=== PATIENT | male | born 1950 | race Caucasian/White ===

== ENCOUNTER 2020-10-07 09:13 | Outpatient (CLI) | payer MEDICARE, MEDICAID | END 2020-10-07 09:14 | disposition home or self-care (01) | LOC: CSHWCC 09:13 | PROVIDERS: ATTEND Nurse Practitioner Family | DX: I87.311 Chronic venous hypertension (idiopathic) with ulcer of right lower extremity (principal); G89.21 Chronic pain due to trauma; I87.2 Venous insufficiency (chronic) (peripheral); L97.312 Non-pressure chronic ulcer of right ankle with fat layer exposed; L97.812 Non-pressure chronic ulcer of other part of right lower leg with fat layer exposed; I87.312 Chronic venous hypertension (idiopathic) with ulcer of left lower extremity; L97.322 Non-pressure chronic ulcer of left ankle with fat layer exposed; L97.822 Non-pressure chronic ulcer of other part of left lower leg with fat layer exposed; I89.0 Lymphedema, not elsewhere classified; J44.9 Chronic obstructive pulmonary disease, unspecified; R60.0 Localized edema; Z65.8 Other specified problems related to psychosocial circumstances; Z91.19 Patient's noncompliance with other medical treatment and regimen | CPT/HCPCS: 29581 ==

== ENCOUNTER 2020-10-10 08:08 | Outpatient (CLI) | payer MEDICARE, MEDICAID | END 2020-10-10 08:09 | disposition home or self-care (01) | LOC: CSHWCC 08:08 | PROVIDERS: ATTEND Nurse Practitioner Family | DX: I87.311 Chronic venous hypertension (idiopathic) with ulcer of right lower extremity (principal); G89.21 Chronic pain due to trauma; I87.2 Venous insufficiency (chronic) (peripheral); L97.312 Non-pressure chronic ulcer of right ankle with fat layer exposed; L97.812 Non-pressure chronic ulcer of other part of right lower leg with fat layer exposed; I87.312 Chronic venous hypertension (idiopathic) with ulcer of left lower extremity; L97.322 Non-pressure chronic ulcer of left ankle with fat layer exposed; L97.822 Non-pressure chronic ulcer of other part of left lower leg with fat layer exposed; I89.0 Lymphedema, not elsewhere classified; J44.9 Chronic obstructive pulmonary disease, unspecified; R60.0 Localized edema; Z65.8 Other specified problems related to psychosocial circumstances; Z91.19 Patient's noncompliance with other medical treatment and regimen | CPT/HCPCS: 29581; 99213; G0463 ==

== ENCOUNTER 2020-10-17 08:41 | Outpatient (CLI) | payer MEDICARE, MEDICAID | END 2020-10-17 08:42 | disposition home or self-care (01) | LOC: CSHWCC 08:41 | PROVIDERS: ATTEND Nurse Practitioner Family | DX: I87.311 Chronic venous hypertension (idiopathic) with ulcer of right lower extremity (principal); L97.312 Non-pressure chronic ulcer of right ankle with fat layer exposed; L97.322 Non-pressure chronic ulcer of left ankle with fat layer exposed; L97.812 Non-pressure chronic ulcer of other part of right lower leg with fat layer exposed; G89.21 Chronic pain due to trauma; I87.2 Venous insufficiency (chronic) (peripheral); I89.0 Lymphedema, not elsewhere classified; J44.9 Chronic obstructive pulmonary disease, unspecified; R60.0 Localized edema; Z65.8 Other specified problems related to psychosocial circumstances; Z91.19 Patient's noncompliance with other medical treatment and regimen | CPT/HCPCS: 29581; 99213; G0463 ==

== ENCOUNTER 2020-10-24 08:57 | Outpatient (CLI) | payer MEDICARE, MEDICAID | END 2020-10-24 08:58 | disposition home or self-care (01) | LOC: EDBD → CSHWCC 08:57 | PROVIDERS: ATTEND Nurse Practitioner Family | DX: I87.311 Chronic venous hypertension (idiopathic) with ulcer of right lower extremity (principal); G89.21 Chronic pain due to trauma; I87.2 Venous insufficiency (chronic) (peripheral); L97.312 Non-pressure chronic ulcer of right ankle with fat layer exposed; L97.812 Non-pressure chronic ulcer of other part of right lower leg with fat layer exposed; L97.322 Non-pressure chronic ulcer of left ankle with fat layer exposed; L97.822 Non-pressure chronic ulcer of other part of left lower leg with fat layer exposed; I89.0 Lymphedema, not elsewhere classified; J44.9 Chronic obstructive pulmonary disease, unspecified; R60.0 Localized edema; Z65.8 Other specified problems related to psychosocial circumstances; Z91.19 Patient's noncompliance with other medical treatment and regimen | CPT/HCPCS: 29581; 99213; G0463 ==

== ENCOUNTER 2020-10-31 09:22 | Outpatient (CLI) | payer MEDICARE, MEDICAID | END 2020-10-31 09:23 | disposition home or self-care (01) | LOC: CSHWCC 09:22 | PROVIDERS: ATTEND Nurse Practitioner Family | DX: I87.312 Chronic venous hypertension (idiopathic) with ulcer of left lower extremity (principal); I87.311 Chronic venous hypertension (idiopathic) with ulcer of right lower extremity; L97.312 Non-pressure chronic ulcer of right ankle with fat layer exposed; L97.322 Non-pressure chronic ulcer of left ankle with fat layer exposed; L97.822 Non-pressure chronic ulcer of other part of left lower leg with fat layer exposed; L97.812 Non-pressure chronic ulcer of other part of right lower leg with fat layer exposed; R60.0 Localized edema; G89.21 Chronic pain due to trauma; I87.2 Venous insufficiency (chronic) (peripheral); J44.9 Chronic obstructive pulmonary disease, unspecified; I89.0 Lymphedema, not elsewhere classified; Z65.8 Other specified problems related to psychosocial circumstances; Z91.19 Patient's noncompliance with other medical treatment and regimen | CPT/HCPCS: 29581; 97139; G0463; 99213 ==

== ENCOUNTER 2020-12-16 08:25 | Outpatient (CLI) | payer MEDICARE, MEDICAID | END 2020-12-16 08:26 | disposition home or self-care (01) | LOC: CSHWCC 08:25 | PROVIDERS: ATTEND Nurse Practitioner Family | DX: I87.313 Chronic venous hypertension (idiopathic) with ulcer of bilateral lower extremity (principal); I87.2 Venous insufficiency (chronic) (peripheral); L97.312 Non-pressure chronic ulcer of right ankle with fat layer exposed; L97.812 Non-pressure chronic ulcer of other part of right lower leg with fat layer exposed; L97.322 Non-pressure chronic ulcer of left ankle with fat layer exposed; L97.822 Non-pressure chronic ulcer of other part of left lower leg with fat layer exposed; S91.101D Unspecified open wound of right great toe without damage to nail, subsequent encounter; I89.0 Lymphedema, not elsewhere classified; R60.0 Localized edema; B35.1 Tinea unguium; G89.21 Chronic pain due to trauma; J44.9 Chronic obstructive pulmonary disease, unspecified; Z65.8 Other specified problems related to psychosocial circumstances; Z91.19 Patient's noncompliance with other medical treatment and regimen | CPT/HCPCS: 29581; 97139; G0463; 99213 ==

== ENCOUNTER 2020-12-19 09:21 | Outpatient (CLI) | payer MEDICARE, MEDICAID | END 2020-12-19 09:22 | disposition home or self-care (01) | LOC: CSHWCC 09:21 | PROVIDERS: ATTEND Nurse Practitioner Family | DX: I87.313 Chronic venous hypertension (idiopathic) with ulcer of bilateral lower extremity (principal); I87.2 Venous insufficiency (chronic) (peripheral); L97.312 Non-pressure chronic ulcer of right ankle with fat layer exposed; L97.812 Non-pressure chronic ulcer of other part of right lower leg with fat layer exposed; L97.322 Non-pressure chronic ulcer of left ankle with fat layer exposed; L97.822 Non-pressure chronic ulcer of other part of left lower leg with fat layer exposed; S91.101A Unspecified open wound of right great toe without damage to nail, initial encounter; I89.0 Lymphedema, not elsewhere classified; R60.0 Localized edema; J44.9 Chronic obstructive pulmonary disease, unspecified; B35.1 Tinea unguium; G89.21 Chronic pain due to trauma; Z65.8 Other specified problems related to psychosocial circumstances; Z91.19 Patient's noncompliance with other medical treatment and regimen | CPT/HCPCS: 29581; 97139; G0463; 99212 ==

== ENCOUNTER 2020-12-23 08:57 | Outpatient (CLI) | payer MEDICARE, MEDICAID | END 2020-12-23 08:58 | disposition home or self-care (01) | LOC: CSHWCC 08:57 | PROVIDERS: ATTEND Nurse Practitioner Family | DX: I87.313 Chronic venous hypertension (idiopathic) with ulcer of bilateral lower extremity (principal); I87.2 Venous insufficiency (chronic) (peripheral); L97.812 Non-pressure chronic ulcer of other part of right lower leg with fat layer exposed; L97.322 Non-pressure chronic ulcer of left ankle with fat layer exposed; L97.822 Non-pressure chronic ulcer of other part of left lower leg with fat layer exposed; S91.101D Unspecified open wound of right great toe without damage to nail, subsequent encounter; I89.0 Lymphedema, not elsewhere classified; J44.9 Chronic obstructive pulmonary disease, unspecified; B35.1 Tinea unguium; G89.21 Chronic pain due to trauma; R60.0 Localized edema; Z65.8 Other specified problems related to psychosocial circumstances; Z91.19 Patient's noncompliance with other medical treatment and regimen | CPT/HCPCS: 29581; 97139; G0463; 99213 ==

== ENCOUNTER 2020-12-26 10:34 | Outpatient (CLI) | payer MEDICARE, MEDICAID | END 2020-12-26 10:35 | disposition home or self-care (01) | LOC: CSHWCC 10:34 | PROVIDERS: ATTEND Nurse Practitioner Family | DX: S91.101D Unspecified open wound of right great toe without damage to nail, subsequent encounter (principal); I87.311 Chronic venous hypertension (idiopathic) with ulcer of right lower extremity; I87.312 Chronic venous hypertension (idiopathic) with ulcer of left lower extremity; L97.311 Non-pressure chronic ulcer of right ankle limited to breakdown of skin; L97.822 Non-pressure chronic ulcer of other part of left lower leg with fat layer exposed; L97.812 Non-pressure chronic ulcer of other part of right lower leg with fat layer exposed; L97.322 Non-pressure chronic ulcer of left ankle with fat layer exposed; I89.0 Lymphedema, not elsewhere classified; R60.0 Localized edema; J44.9 Chronic obstructive pulmonary disease, unspecified; Z65.8 Other specified problems related to psychosocial circumstances; Z91.19 Patient's noncompliance with other medical treatment and regimen | CPT/HCPCS: 29581; 97139; G0463; 99213 ==

== ENCOUNTER 2020-12-30 08:45 | Outpatient (CLI) | payer MEDICARE, MEDICAID | END 2020-12-30 08:46 | disposition home or self-care (01) | LOC: CSHWCC 08:45 | PROVIDERS: ATTEND Nurse Practitioner Family | DX: S91.101D Unspecified open wound of right great toe without damage to nail, subsequent encounter (principal); I87.311 Chronic venous hypertension (idiopathic) with ulcer of right lower extremity; I87.312 Chronic venous hypertension (idiopathic) with ulcer of left lower extremity; L97.312 Non-pressure chronic ulcer of right ankle with fat layer exposed; L97.322 Non-pressure chronic ulcer of left ankle with fat layer exposed; L97.822 Non-pressure chronic ulcer of other part of left lower leg with fat layer exposed; R60.0 Localized edema; B35.1 Tinea unguium; G89.21 Chronic pain due to trauma; I87.2 Venous insufficiency (chronic) (peripheral); I89.0 Lymphedema, not elsewhere classified; J44.9 Chronic obstructive pulmonary disease, unspecified; Z65.8 Other specified problems related to psychosocial circumstances; Z91.19 Patient's noncompliance with other medical treatment and regimen | CPT/HCPCS: 29581; 97139; G0463; 99213 ==

== ENCOUNTER 2021-01-02 10:51 | Outpatient (CLI) | payer MEDICARE, MEDICAID | END 2021-01-02 10:52 | disposition home or self-care (01) | LOC: CSHWCC 10:51 | PROVIDERS: ATTEND Nurse Practitioner Family | DX: I87.313 Chronic venous hypertension (idiopathic) with ulcer of bilateral lower extremity (principal); I87.2 Venous insufficiency (chronic) (peripheral); L97.312 Non-pressure chronic ulcer of right ankle with fat layer exposed; L97.812 Non-pressure chronic ulcer of other part of right lower leg with fat layer exposed; L97.822 Non-pressure chronic ulcer of other part of left lower leg with fat layer exposed; S91.101D Unspecified open wound of right great toe without damage to nail, subsequent encounter; I89.0 Lymphedema, not elsewhere classified; R60.0 Localized edema; J44.9 Chronic obstructive pulmonary disease, unspecified; B35.1 Tinea unguium; G89.21 Chronic pain due to trauma; Z65.8 Other specified problems related to psychosocial circumstances; Z91.19 Patient's noncompliance with other medical treatment and regimen | CPT/HCPCS: 29581; 97139; G0463; 99213 ==

== ENCOUNTER 2021-01-06 10:25 | Outpatient (CLI) | payer MEDICARE, MEDICAID | END 2021-01-06 10:26 | disposition home or self-care (01) | LOC: CSHWCC 10:25 | PROVIDERS: ATTEND Nurse Practitioner Family | DX: I87.313 Chronic venous hypertension (idiopathic) with ulcer of bilateral lower extremity (principal); I87.2 Venous insufficiency (chronic) (peripheral); L97.312 Non-pressure chronic ulcer of right ankle with fat layer exposed; L97.812 Non-pressure chronic ulcer of other part of right lower leg with fat layer exposed; L97.822 Non-pressure chronic ulcer of other part of left lower leg with fat layer exposed; S91.101D Unspecified open wound of right great toe without damage to nail, subsequent encounter; R60.0 Localized edema; J44.9 Chronic obstructive pulmonary disease, unspecified; B35.1 Tinea unguium; G89.21 Chronic pain due to trauma; Z65.8 Other specified problems related to psychosocial circumstances; Z91.19 Patient's noncompliance with other medical treatment and regimen | CPT/HCPCS: 29581; 99213; G0463 ==

== ENCOUNTER 2021-01-09 09:58 | Outpatient (CLI) | payer MEDICARE, MEDICAID | END 2021-01-09 09:59 | disposition home or self-care (01) | LOC: CSHWCC 09:58 | PROVIDERS: ATTEND Nurse Practitioner Family | DX: I87.313 Chronic venous hypertension (idiopathic) with ulcer of bilateral lower extremity (principal); I87.2 Venous insufficiency (chronic) (peripheral); S91.101D Unspecified open wound of right great toe without damage to nail, subsequent encounter; L97.312 Non-pressure chronic ulcer of right ankle with fat layer exposed; L97.322 Non-pressure chronic ulcer of left ankle with fat layer exposed; L97.812 Non-pressure chronic ulcer of other part of right lower leg with fat layer exposed; L97.822 Non-pressure chronic ulcer of other part of left lower leg with fat layer exposed; I89.0 Lymphedema, not elsewhere classified; G89.21 Chronic pain due to trauma; J44.9 Chronic obstructive pulmonary disease, unspecified; R60.0 Localized edema; Z65.8 Other specified problems related to psychosocial circumstances; Z91.19 Patient's noncompliance with other medical treatment and regimen | CPT/HCPCS: 29581; 97139; G0463; 99213 ==

== ENCOUNTER 2021-01-13 09:04 | Outpatient (CLI) | payer MEDICARE, MEDICAID | END 2021-01-13 09:05 | disposition home or self-care (01) | LOC: CSHWCC 09:04 | PROVIDERS: ATTEND Nurse Practitioner Family | DX: I87.313 Chronic venous hypertension (idiopathic) with ulcer of bilateral lower extremity (principal); I87.2 Venous insufficiency (chronic) (peripheral); L97.322 Non-pressure chronic ulcer of left ankle with fat layer exposed; L97.312 Non-pressure chronic ulcer of right ankle with fat layer exposed; L97.812 Non-pressure chronic ulcer of other part of right lower leg with fat layer exposed; L97.822 Non-pressure chronic ulcer of other part of left lower leg with fat layer exposed; S91.101D Unspecified open wound of right great toe without damage to nail, subsequent encounter; I89.0 Lymphedema, not elsewhere classified; R60.0 Localized edema; J44.9 Chronic obstructive pulmonary disease, unspecified; G89.21 Chronic pain due to trauma; Z65.8 Other specified problems related to psychosocial circumstances; Z91.19 Patient's noncompliance with other medical treatment and regimen | CPT/HCPCS: 29581; 87070; 87077; 87205; 99213; G0463 ==

== ENCOUNTER 2021-01-16 09:51 | Outpatient (CLI) | payer MEDICARE, MEDICAID | END 2021-01-16 09:52 | disposition home or self-care (01) | LOC: CSHWCC 09:51 | PROVIDERS: ATTEND Nurse Practitioner Family | DX: I87.313 Chronic venous hypertension (idiopathic) with ulcer of bilateral lower extremity (principal); S91.101D Unspecified open wound of right great toe without damage to nail, subsequent encounter; I87.2 Venous insufficiency (chronic) (peripheral); G89.21 Chronic pain due to trauma; L97.312 Non-pressure chronic ulcer of right ankle with fat layer exposed; L97.822 Non-pressure chronic ulcer of other part of left lower leg with fat layer exposed; L97.812 Non-pressure chronic ulcer of other part of right lower leg with fat layer exposed; L97.322 Non-pressure chronic ulcer of left ankle with fat layer exposed; I89.0 Lymphedema, not elsewhere classified; J44.9 Chronic obstructive pulmonary disease, unspecified; R60.0 Localized edema; Z65.8 Other specified problems related to psychosocial circumstances; Z91.19 Patient's noncompliance with other medical treatment and regimen | CPT/HCPCS: 29581; 99213; G0463 ==

== ENCOUNTER 2021-01-20 07:43 | Outpatient (CLI) | payer MEDICARE, MEDICAID | END 2021-01-20 07:44 | disposition home or self-care (01) | LOC: CSHWCC 07:43 | PROVIDERS: ATTEND Nurse Practitioner Family | DX: S91.101D Unspecified open wound of right great toe without damage to nail, subsequent encounter (principal); I87.313 Chronic venous hypertension (idiopathic) with ulcer of bilateral lower extremity; R60.0 Localized edema; L97.312 Non-pressure chronic ulcer of right ankle with fat layer exposed; L97.812 Non-pressure chronic ulcer of other part of right lower leg with fat layer exposed; L97.322 Non-pressure chronic ulcer of left ankle with fat layer exposed; L97.822 Non-pressure chronic ulcer of other part of left lower leg with fat layer exposed; I89.0 Lymphedema, not elsewhere classified; I87.2 Venous insufficiency (chronic) (peripheral); G89.21 Chronic pain due to trauma; J44.9 Chronic obstructive pulmonary disease, unspecified; Z65.8 Other specified problems related to psychosocial circumstances; Z91.19 Patient's noncompliance with other medical treatment and regimen ==

== ENCOUNTER 2021-01-23 07:51 | Outpatient (CLI) | payer MEDICARE, MEDICAID | END 2021-01-23 07:52 | disposition home or self-care (01) | LOC: CSHWCC 07:51 | PROVIDERS: ATTEND Nurse Practitioner Family | DX: I87.313 Chronic venous hypertension (idiopathic) with ulcer of bilateral lower extremity (principal); I87.2 Venous insufficiency (chronic) (peripheral); L97.312 Non-pressure chronic ulcer of right ankle with fat layer exposed; L97.812 Non-pressure chronic ulcer of other part of right lower leg with fat layer exposed; L97.822 Non-pressure chronic ulcer of other part of left lower leg with fat layer exposed; S91.101D Unspecified open wound of right great toe without damage to nail, subsequent encounter; I89.0 Lymphedema, not elsewhere classified; R60.0 Localized edema; J44.9 Chronic obstructive pulmonary disease, unspecified; G89.21 Chronic pain due to trauma; Z65.8 Other specified problems related to psychosocial circumstances; Z91.19 Patient's noncompliance with other medical treatment and regimen ==

== ENCOUNTER 2021-01-27 11:16 | Outpatient (CLI) | payer MEDICARE, MEDICAID | END 2021-01-27 11:17 | disposition home or self-care (01) | LOC: CSHWCC 11:16 | PROVIDERS: ATTEND Nurse Practitioner Family | DX: I87.313 Chronic venous hypertension (idiopathic) with ulcer of bilateral lower extremity (principal); I87.2 Venous insufficiency (chronic) (peripheral); G89.21 Chronic pain due to trauma; L97.312 Non-pressure chronic ulcer of right ankle with fat layer exposed; L97.812 Non-pressure chronic ulcer of other part of right lower leg with fat layer exposed; L97.322 Non-pressure chronic ulcer of left ankle with fat layer exposed; L97.822 Non-pressure chronic ulcer of other part of left lower leg with fat layer exposed; S91.101D Unspecified open wound of right great toe without damage to nail, subsequent encounter; I89.0 Lymphedema, not elsewhere classified; J44.9 Chronic obstructive pulmonary disease, unspecified; R60.0 Localized edema; Z65.8 Other specified problems related to psychosocial circumstances; Z91.19 Patient's noncompliance with other medical treatment and regimen | CPT/HCPCS: 29581; 97139; G0463; 99213 ==

== ENCOUNTER 2021-01-30 08:53 | Outpatient (CLI) | payer MEDICARE, MEDICAID | END 2021-01-30 08:54 | disposition home or self-care (01) | LOC: CSHWCC 08:53 | PROVIDERS: ATTEND Nurse Practitioner Family | DX: I87.313 Chronic venous hypertension (idiopathic) with ulcer of bilateral lower extremity (principal); I87.2 Venous insufficiency (chronic) (peripheral); L97.312 Non-pressure chronic ulcer of right ankle with fat layer exposed; L97.812 Non-pressure chronic ulcer of other part of right lower leg with fat layer exposed; L97.322 Non-pressure chronic ulcer of left ankle with fat layer exposed; L97.822 Non-pressure chronic ulcer of other part of left lower leg with fat layer exposed; S91.101D Unspecified open wound of right great toe without damage to nail, subsequent encounter; I89.0 Lymphedema, not elsewhere classified; R60.0 Localized edema; J44.9 Chronic obstructive pulmonary disease, unspecified; G89.21 Chronic pain due to trauma; Z65.8 Other specified problems related to psychosocial circumstances; Z91.19 Patient's noncompliance with other medical treatment and regimen ==

== ENCOUNTER 2021-02-03 11:06 | Outpatient (CLI) | payer MEDICARE, MEDICAID | END 2021-02-03 11:07 | disposition home or self-care (01) | LOC: CSHWCC 11:06 | PROVIDERS: ATTEND Nurse Practitioner Family | DX: S91.101D Unspecified open wound of right great toe without damage to nail, subsequent encounter (principal); I87.313 Chronic venous hypertension (idiopathic) with ulcer of bilateral lower extremity; L97.312 Non-pressure chronic ulcer of right ankle with fat layer exposed; L97.812 Non-pressure chronic ulcer of other part of right lower leg with fat layer exposed; L97.322 Non-pressure chronic ulcer of left ankle with fat layer exposed; L97.822 Non-pressure chronic ulcer of other part of left lower leg with fat layer exposed; R60.0 Localized edema; I87.2 Venous insufficiency (chronic) (peripheral); G89.21 Chronic pain due to trauma; J44.9 Chronic obstructive pulmonary disease, unspecified; I89.0 Lymphedema, not elsewhere classified; Z65.8 Other specified problems related to psychosocial circumstances; Z91.19 Patient's noncompliance with other medical treatment and regimen ==

== ENCOUNTER 2021-02-06 10:05 | Outpatient (CLI) | payer MEDICARE, MEDICAID | END 2021-02-06 10:06 | disposition home or self-care (01) | LOC: CSHWCC 10:05 | PROVIDERS: ATTEND Nurse Practitioner Family | DX: I87.313 Chronic venous hypertension (idiopathic) with ulcer of bilateral lower extremity (principal); I87.2 Venous insufficiency (chronic) (peripheral); L97.312 Non-pressure chronic ulcer of right ankle with fat layer exposed; L97.812 Non-pressure chronic ulcer of other part of right lower leg with fat layer exposed; L97.322 Non-pressure chronic ulcer of left ankle with fat layer exposed; L97.822 Non-pressure chronic ulcer of other part of left lower leg with fat layer exposed; S91.101D Unspecified open wound of right great toe without damage to nail, subsequent encounter; I89.0 Lymphedema, not elsewhere classified; J44.9 Chronic obstructive pulmonary disease, unspecified; R60.0 Localized edema; G89.21 Chronic pain due to trauma; Z65.8 Other specified problems related to psychosocial circumstances; Z91.19 Patient's noncompliance with other medical treatment and regimen | CPT/HCPCS: 29581; 99213; G0463 ==

== ENCOUNTER 2021-02-10 10:44 | Outpatient (CLI) | payer MEDICARE, MEDICAID | END 2021-02-10 10:45 | disposition home or self-care (01) | LOC: CSHWCC 10:44 | PROVIDERS: ATTEND Nurse Practitioner Family | DX: I87.313 Chronic venous hypertension (idiopathic) with ulcer of bilateral lower extremity (principal); I87.2 Venous insufficiency (chronic) (peripheral); S91.101D Unspecified open wound of right great toe without damage to nail, subsequent encounter; L97.312 Non-pressure chronic ulcer of right ankle with fat layer exposed; L97.812 Non-pressure chronic ulcer of other part of right lower leg with fat layer exposed; L97.322 Non-pressure chronic ulcer of left ankle with fat layer exposed; L97.822 Non-pressure chronic ulcer of other part of left lower leg with fat layer exposed; I89.0 Lymphedema, not elsewhere classified; J44.9 Chronic obstructive pulmonary disease, unspecified; R60.0 Localized edema; G89.21 Chronic pain due to trauma; Z65.8 Other specified problems related to psychosocial circumstances; Z91.19 Patient's noncompliance with other medical treatment and regimen | CPT/HCPCS: 29581; 99213; G0463 ==

== ENCOUNTER 2021-02-13 08:34 | Outpatient (CLI) | payer MEDICARE, MEDICAID | END 2021-02-13 08:35 | disposition home or self-care (01) | LOC: EDBD → CSHWCC 08:34 | PROVIDERS: ATTEND Nurse Practitioner Family | DX: I87.313 Chronic venous hypertension (idiopathic) with ulcer of bilateral lower extremity (principal); I87.2 Venous insufficiency (chronic) (peripheral); S91.101D Unspecified open wound of right great toe without damage to nail, subsequent encounter; L97.312 Non-pressure chronic ulcer of right ankle with fat layer exposed; L97.812 Non-pressure chronic ulcer of other part of right lower leg with fat layer exposed; L97.322 Non-pressure chronic ulcer of left ankle with fat layer exposed; L97.822 Non-pressure chronic ulcer of other part of left lower leg with fat layer exposed; I89.0 Lymphedema, not elsewhere classified; G89.21 Chronic pain due to trauma; J44.9 Chronic obstructive pulmonary disease, unspecified; R60.0 Localized edema; Z65.8 Other specified problems related to psychosocial circumstances; Z91.19 Patient's noncompliance with other medical treatment and regimen | CPT/HCPCS: 29581; 97139; G0463; 99213 ==

== ENCOUNTER 2021-02-16 13:02 | Outpatient (CLI) | payer MEDICARE, MEDICAID | END 2021-02-16 13:03 | disposition home or self-care (01) | LOC: CSHWCC 13:02 | PROVIDERS: ATTEND Nurse Practitioner Family | DX: S91.101D Unspecified open wound of right great toe without damage to nail, subsequent encounter (principal); I87.311 Chronic venous hypertension (idiopathic) with ulcer of right lower extremity; L97.312 Non-pressure chronic ulcer of right ankle with fat layer exposed; L97.322 Non-pressure chronic ulcer of left ankle with fat layer exposed; L97.822 Non-pressure chronic ulcer of other part of left lower leg with fat layer exposed; R60.0 Localized edema; G89.21 Chronic pain due to trauma; I87.2 Venous insufficiency (chronic) (peripheral); J44.9 Chronic obstructive pulmonary disease, unspecified; I89.0 Lymphedema, not elsewhere classified; Z65.8 Other specified problems related to psychosocial circumstances; Z91.19 Patient's noncompliance with other medical treatment and regimen ==

== ENCOUNTER 2021-02-19 12:46 | Outpatient (CLI) | payer MEDICARE, MEDICAID | END 2021-02-19 12:47 | disposition home or self-care (01) | LOC: EDBD → CSHWCC 12:46 | PROVIDERS: ATTEND Nurse Practitioner Family | DX: I87.313 Chronic venous hypertension (idiopathic) with ulcer of bilateral lower extremity (principal); I87.2 Venous insufficiency (chronic) (peripheral); S91.101D Unspecified open wound of right great toe without damage to nail, subsequent encounter; L97.312 Non-pressure chronic ulcer of right ankle with fat layer exposed; L97.322 Non-pressure chronic ulcer of left ankle with fat layer exposed; L97.822 Non-pressure chronic ulcer of other part of left lower leg with fat layer exposed; I89.0 Lymphedema, not elsewhere classified; J44.9 Chronic obstructive pulmonary disease, unspecified; R60.0 Localized edema; G89.21 Chronic pain due to trauma; Z65.8 Other specified problems related to psychosocial circumstances; Z91.19 Patient's noncompliance with other medical treatment and regimen | CPT/HCPCS: 29581; 97139; G0463; 99213 ==

== ENCOUNTER 2021-02-23 11:21 | Outpatient (CLI) | payer MEDICARE, MEDICAID | END 2021-02-23 11:22 | disposition home or self-care (01) | LOC: EDBD → CSHWCC 11:21 | PROVIDERS: ATTEND Nurse Practitioner Family | DX: I87.313 Chronic venous hypertension (idiopathic) with ulcer of bilateral lower extremity (principal); I87.2 Venous insufficiency (chronic) (peripheral); S91.101D Unspecified open wound of right great toe without damage to nail, subsequent encounter; L97.812 Non-pressure chronic ulcer of other part of right lower leg with fat layer exposed; L97.822 Non-pressure chronic ulcer of other part of left lower leg with fat layer exposed; L97.322 Non-pressure chronic ulcer of left ankle with fat layer exposed; L97.312 Non-pressure chronic ulcer of right ankle with fat layer exposed; G89.21 Chronic pain due to trauma; I89.0 Lymphedema, not elsewhere classified; J44.9 Chronic obstructive pulmonary disease, unspecified; R60.0 Localized edema; Z91.19 Patient's noncompliance with other medical treatment and regimen; Z65.8 Other specified problems related to psychosocial circumstances ==

== ENCOUNTER 2021-02-26 11:40 | Outpatient (CLI) | payer MEDICARE, MEDICAID | END 2021-02-26 11:41 | disposition home or self-care (01) | LOC: CSHWCC 11:40 | PROVIDERS: ATTEND Nurse Practitioner Family | DX: I87.312 Chronic venous hypertension (idiopathic) with ulcer of left lower extremity (principal); I87.311 Chronic venous hypertension (idiopathic) with ulcer of right lower extremity; L97.812 Non-pressure chronic ulcer of other part of right lower leg with fat layer exposed; L97.822 Non-pressure chronic ulcer of other part of left lower leg with fat layer exposed; L97.312 Non-pressure chronic ulcer of right ankle with fat layer exposed; L97.322 Non-pressure chronic ulcer of left ankle with fat layer exposed; S91.101D Unspecified open wound of right great toe without damage to nail, subsequent encounter; G89.21 Chronic pain due to trauma; R60.0 Localized edema; I87.2 Venous insufficiency (chronic) (peripheral); J44.9 Chronic obstructive pulmonary disease, unspecified; I89.0 Lymphedema, not elsewhere classified; Z65.8 Other specified problems related to psychosocial circumstances; Z91.19 Patient's noncompliance with other medical treatment and regimen | CPT/HCPCS: 29581; 97139; G0463; 99213 ==

== ENCOUNTER 2021-03-02 08:47 | Outpatient (CLI) | payer MEDICARE, MEDICAID | END 2021-03-02 08:48 | disposition home or self-care (01) | LOC: CSHWCC 08:47 | PROVIDERS: ATTEND Nurse Practitioner Family | DX: I87.313 Chronic venous hypertension (idiopathic) with ulcer of bilateral lower extremity (principal); I87.2 Venous insufficiency (chronic) (peripheral); L97.812 Non-pressure chronic ulcer of other part of right lower leg with fat layer exposed; L97.322 Non-pressure chronic ulcer of left ankle with fat layer exposed; L97.822 Non-pressure chronic ulcer of other part of left lower leg with fat layer exposed; S91.101D Unspecified open wound of right great toe without damage to nail, subsequent encounter; I89.0 Lymphedema, not elsewhere classified; R60.0 Localized edema; J44.9 Chronic obstructive pulmonary disease, unspecified; G89.21 Chronic pain due to trauma; Z91.19 Patient's noncompliance with other medical treatment and regimen; Z65.8 Other specified problems related to psychosocial circumstances | CPT/HCPCS: 29581; 99213; G0463 ==

== ENCOUNTER 2021-03-05 11:20 | Outpatient (CLI) | payer MEDICARE, MEDICAID | END 2021-03-05 11:21 | disposition home or self-care (01) | LOC: CSHWCC 11:20 | PROVIDERS: ATTEND Nurse Practitioner Family | DX: I87.313 Chronic venous hypertension (idiopathic) with ulcer of bilateral lower extremity (principal); I87.2 Venous insufficiency (chronic) (peripheral); S91.101D Unspecified open wound of right great toe without damage to nail, subsequent encounter; L97.312 Non-pressure chronic ulcer of right ankle with fat layer exposed; L97.322 Non-pressure chronic ulcer of left ankle with fat layer exposed; L97.822 Non-pressure chronic ulcer of other part of left lower leg with fat layer exposed; L97.812 Non-pressure chronic ulcer of other part of right lower leg with fat layer exposed; I89.0 Lymphedema, not elsewhere classified; J44.9 Chronic obstructive pulmonary disease, unspecified; G89.21 Chronic pain due to trauma; R60.0 Localized edema; Z65.8 Other specified problems related to psychosocial circumstances; Z91.19 Patient's noncompliance with other medical treatment and regimen ==

== ENCOUNTER 2021-03-09 15:37 | Outpatient (CLI) | payer MEDICARE, MEDICAID | END 2021-03-09 15:38 | disposition home or self-care (01) | LOC: CSHWCC 15:37 | PROVIDERS: ATTEND Nurse Practitioner Family | DX: I87.313 Chronic venous hypertension (idiopathic) with ulcer of bilateral lower extremity (principal); I87.2 Venous insufficiency (chronic) (peripheral); L97.312 Non-pressure chronic ulcer of right ankle with fat layer exposed; L97.812 Non-pressure chronic ulcer of other part of right lower leg with fat layer exposed; L97.322 Non-pressure chronic ulcer of left ankle with fat layer exposed; L97.822 Non-pressure chronic ulcer of other part of left lower leg with fat layer exposed; S91.101D Unspecified open wound of right great toe without damage to nail, subsequent encounter; I89.0 Lymphedema, not elsewhere classified; R60.0 Localized edema; J44.9 Chronic obstructive pulmonary disease, unspecified; G89.21 Chronic pain due to trauma; Z65.8 Other specified problems related to psychosocial circumstances; Z91.19 Patient's noncompliance with other medical treatment and regimen ==

== ENCOUNTER 2021-03-16 15:33 | Outpatient (CLI) | payer MEDICARE, MEDICAID | END 2021-03-16 15:34 | disposition home or self-care (01) | LOC: EDBD → CSHWCC 15:33 | PROVIDERS: ATTEND Nurse Practitioner Family | DX: I87.313 Chronic venous hypertension (idiopathic) with ulcer of bilateral lower extremity (principal); I87.2 Venous insufficiency (chronic) (peripheral); L97.312 Non-pressure chronic ulcer of right ankle with fat layer exposed; L97.812 Non-pressure chronic ulcer of other part of right lower leg with fat layer exposed; L97.322 Non-pressure chronic ulcer of left ankle with fat layer exposed; L97.822 Non-pressure chronic ulcer of other part of left lower leg with fat layer exposed; S91.101D Unspecified open wound of right great toe without damage to nail, subsequent encounter; I89.0 Lymphedema, not elsewhere classified; R60.0 Localized edema; J44.9 Chronic obstructive pulmonary disease, unspecified; G89.21 Chronic pain due to trauma; Z91.19 Patient's noncompliance with other medical treatment and regimen; Z65.8 Other specified problems related to psychosocial circumstances ==

== ENCOUNTER 2021-03-17 19:39 | Inpatient (IN) | payer MEDICAID, MEDICARE ==
[2021-03-17 21:30] LABS: #Eosinphils 0.2 10x3/uL (0.0-0.5); #Monocytes 1.1 10x3/uL (0.0-1.1); #Neutrophils 6.5 10x3/uL (1.5-8.4); %Basophils 0.3 % (0.0-2.0); %Eosinophils 2.4 % (0.0-6.0); %Lymphocytes 13.2 % (18.0-47.0); %Monocytes 12.1 % (0.0-10.0); %Neutrophils 71.6 % (40.0-75.0); Hemoglobin 11.5 g/dL (13.5-17.5); Mean Corpuscular HGB CONC 30.2 g/dL (32.0-36.0); Mean Platelet Volume 9.8 fl (7.4-10.4); Platelet Count 261 10x3/uL (150-450); RBC Distribution Width 17.7 % (11.5-14.5); Red Blood Cell (RBC) Count 4.43 10x6/uL (4.32-5.72); White Blood Cell (WBC) Count 9.1 10x3/uL (3.5-10.5)
[2021-03-17 21:46] LABS: ALT (SGPT) 31 U/L (8-55); AST (SGOT) 33 U/L (5-34); Albumin 3.7 g/dL (3.4-4.8); Alkaline Phosphatase 248 U/L (40-110); Anion Gap 12 mmol/L (10-20); BUN (Urea Nitrogen) 14 mg/dL (8.4-25.7); Bilirubin, Total 0.4 mg/dL (0.2-1.2); Calc. Creatinine Clearance 0 mL/min (70-130); Calcium 9.2 mg/dL (7.8-10.44); Carbon Dioxide 24 mmol/L (23-31); Chloride 105 mmol/L (98-107); Globulin 3.2 g/dL (2.4-3.5); Glucose 96 mg/dL (83-110); Protein, Total 6.9 g/dL (5.8-8.1); Sodium 137 mmol/L (136-145)
[2021-03-17] MEDS ORDERED: Morphine 4 MG/ML VIAL ONE ×2 (22:48→23:46)
[2021-03-18] MEDS ORDERED: Ondansetron PF 4 MG/2 ML Vial IVP PRN (03:00)
[2021-03-18] MEDS ORDERED: Sodium Chloride 0.9% 1,000 ML IV SCH ×2 (03:00→06:15)
[2021-03-18 03:03] VITALS: BMI 30.4
[2021-03-18] MEDS: Morphine 4 MG/ML VIAL SLOW IVP PRN ×4 (03:20→20:31)
[2021-03-18] MEDS ORDERED: FLU VACC QS2021-22(65YR UP)/PF 240 MCG/0.7 ML SYRINGE IM ONE (04:15)
[2021-03-18] MEDS ORDERED: Piperacillin/Tazobactam 3.375 GM in Sodium Chloride 0.9% 100 ML IVPB SCH (06:15)
[2021-03-18] MEDS ORDERED: Thiamine HCl 200 MG/2 ML VIAL SLOW IVP SCH (06:15)
[2021-03-18] MEDS ORDERED: Morphine 4 MG/ML VIAL SLOW IVP PRN (06:17)
[2021-03-18] MEDS ORDERED: Lorazepam 2 MG/ML VIAL SLOW IVP PRN (06:34)
[2021-03-18 06:54] LABS: INR-International Normal Ratio 1.1; PTT 33.9 sec (22.0-33.0); Prothrombin Time 11.8 sec (9.5-12.1)
[2021-03-18 06:56] LABS: #Eosinphils 0.3 10x3/uL (0.0-0.5); #Neutrophils 4.6 10x3/uL (1.5-8.4); %Basophils 0.3 % (0.0-2.0); %Eosinophils 3.7 % (0.0-6.0); %Lymphocytes 15.7 % (18.0-47.0); %Monocytes 14.4 % (0.0-10.0); %Neutrophils 65.2 % (40.0-75.0); Hemoglobin 11.5 g/dL (13.5-17.5); Mean Corpuscular HGB CONC 30.6 g/dL (32.0-36.0); Mean Corpuscular Hemoglobin 26.5 pg (27.0-33.0); Mean Corpuscular Volume 86.6 fl (81.2-95.1); Mean Platelet Volume 10.1 fl (7.4-10.4); Platelet Count 242 10x3/uL (150-450); RBC Distribution Width 17.8 % (11.5-14.5); Red Blood Cell (RBC) Count 4.34 10x6/uL (4.32-5.72)
[2021-03-18 06:56] LABS: ALT (SGPT) 28 U/L (8-55); AST (SGOT) 27 U/L (5-34); Albumin 3.5 g/dL (3.4-4.8); Alkaline Phosphatase 234 U/L (40-110); Anion Gap 12 mmol/L (10-20); BUN (Urea Nitrogen) 14 mg/dL (8.4-25.7); Bilirubin, Total 0.6 mg/dL (0.2-1.2); CRP (Inflammatory) 11.13 mg/dL (= or < 0.5); Calc. Creatinine Clearance 134 mL/min (70-130); Calcium 8.7 mg/dL (7.8-10.44); Carbon Dioxide 25 mmol/L (23-31); Chloride 106 mmol/L (98-107); Globulin 3.1 g/dL (2.4-3.5); Glucose 92 mg/dL (83-110); Lipase 6 U/L (8-78); Potassium 3.9 mmol/L (3.5-5.1); Protein, Total 6.6 g/dL (5.8-8.1); Sodium 139 mmol/L (136-145)
[2021-03-18] MEDS ORDERED: Budesonide 0.5 MG/2 ML NEB ONE (07:10)
[2021-03-18] MEDS: Budesonide 0.5 MG/2 ML NEB NEB SCH ×2 (07:37→19:29)
[2021-03-18 08:40] LABS: SARS-CoV-2 NAA Rapid Test Not Detected (NotDetected)
[2021-03-18] MEDS: Pregabalin 25 MG CAP PO SCH ×2 (09:04→20:28)
[2021-03-18] MEDS: Multivitamins, Adult 10 ML, Folic Acid 1 MG in Dextrose 5 %-0.45 % NaCl 1,000 ML IV SCH (09:20)
[2021-03-18] MEDS: Thiamine HCl 200 MG/2 ML VIAL SLOW IVP SCH (09:21)
[2021-03-18] MEDS: oxyCODONE 5 MG TAB PO PRN ×2 (16:32→22:41)
[2021-03-18] MEDS: Acetaminophen 325 MG TAB PO PRN ×2 (16:32→22:40)
[2021-03-18] MEDS: Sodium Chloride 0.9% 1,000 ML IV SCH (17:16)
[2021-03-18] MEDS: Enoxaparin Sodium 40 MG/0.4 ML SYRINGE SC SCH (20:32)
[2021-03-19] MEDS: Morphine 4 MG/ML VIAL SLOW IVP PRN ×3 (02:45→15:06)
[2021-03-19] MEDS: Sodium Chloride 0.9% 1,000 ML IV SCH (02:50)
[2021-03-19] MEDS: Acetaminophen 325 MG TAB PO PRN ×3 (05:13→23:55)
[2021-03-19] MEDS: oxyCODONE 5 MG TAB PO PRN ×4 (05:14→23:54)
[2021-03-19] MEDS: Budesonide 0.5 MG/2 ML NEB NEB SCH ×2 (07:35→19:45)
[2021-03-19] MEDS: Multivitamins, Adult 10 ML, Folic Acid 1 MG in Dextrose 5 %-0.45 % NaCl 1,000 ML IV SCH (09:07)
[2021-03-19] MEDS: Thiamine HCl 200 MG/2 ML VIAL SLOW IVP SCH (09:08)
[2021-03-19] MEDS ORDERED: Pregabalin 25 MG CAP PO SCH (09:15)
[2021-03-19 09:55] LABS: #Eosinphils 0.2 10x3/uL (0.0-0.5); #Monocytes 0.7 10x3/uL (0.0-1.1); %Basophils 0.3 % (0.0-2.0); %Eosinophils 3.3 % (0.0-6.0); %Lymphocytes 13.2 % (18.0-47.0); %Monocytes 10.6 % (0.0-10.0); %Neutrophils 72.2 % (40.0-75.0); Hemoglobin 11.8 g/dL (13.5-17.5); Mean Corpuscular HGB CONC 30.3 g/dL (32.0-36.0); Mean Corpuscular Hemoglobin 26.2 pg (27.0-33.0); Mean Corpuscular Volume 86.3 fl (81.2-95.1); Mean Platelet Volume 10.2 fl (7.4-10.4); Platelet Count 261 10x3/uL (150-450); RBC Distribution Width 17.4 % (11.5-14.5); Red Blood Cell (RBC) Count 4.51 10x6/uL (4.32-5.72); White Blood Cell (WBC) Count 6.9 10x3/uL (3.5-10.5)
[2021-03-19] MEDS: Pregabalin 25 MG CAP PO SCH ×2 (12:01→20:37)
[2021-03-19] MEDS ORDERED: Nitroglycerin 0.4 MG TAB (25 Tab Bottle) SL PRN (18:43)
[2021-03-19] MEDS ORDERED: Amlodipine 5 MG TAB PO SCH (20:00)
[2021-03-19] MEDS: Spironolactone 25 MG TAB PO SCH (20:37)
[2021-03-19] MEDS: Enoxaparin Sodium 40 MG/0.4 ML SYRINGE SC SCH (20:37)
[2021-03-20] MEDS ORDERED: hydrALAZINE 20 MG/ML VIAL SLOW IVP PRN (00:10)
[2021-03-20] MEDS: Sodium Chloride 0.9% 1,000 ML IV SCH ×3 (01:00→20:33)
[2021-03-20] MEDS: Morphine 4 MG/ML VIAL SLOW IVP PRN (04:34)
[2021-03-20] MEDS: Acetaminophen 325 MG TAB PO PRN ×3 (05:58→18:56)
[2021-03-20] MEDS: oxyCODONE 5 MG TAB PO PRN ×3 (06:00→18:55)
[2021-03-20] MEDS: Budesonide 0.5 MG/2 ML NEB NEB SCH ×2 (07:49→19:40)
[2021-03-20] MEDS: Multivitamins, Adult 10 ML, Folic Acid 1 MG in Dextrose 5 %-0.45 % NaCl 1,000 ML IV SCH (09:43)
[2021-03-20] MEDS: Amlodipine 10 MG TAB PO SCH (09:45)
[2021-03-20] MEDS: Thiamine HCl 200 MG/2 ML VIAL SLOW IVP SCH (09:46)
[2021-03-20] MEDS ORDERED: Pregabalin 25 MG CAP PO SCH ×2 (10:00→21:00)
[2021-03-20 10:27] LABS: #Eosinphils 0.2 10x3/uL (0.0-0.5); #Monocytes 0.8 10x3/uL (0.0-1.1); %Basophils 0.1 % (0.0-2.0); %Eosinophils 2.3 % (0.0-6.0); %Monocytes 12.2 % (0.0-10.0); Hemoglobin 12.8 g/dL (13.5-17.5); Mean Corpuscular HGB CONC 30.2 g/dL (32.0-36.0); Mean Corpuscular Hemoglobin 26.1 pg (27.0-33.0); Mean Corpuscular Volume 86.4 fl (81.2-95.1); Mean Platelet Volume 9.8 fl (7.4-10.4); Platelet Count 282 10x3/uL (150-450); RBC Distribution Width 17.2 % (11.5-14.5); Red Blood Cell (RBC) Count 4.91 10x6/uL (4.32-5.72); White Blood Cell (WBC) Count 6.8 10x3/uL (3.5-10.5)
[2021-03-20 10:43] LABS: ALT (SGPT) 27 U/L (8-55); AST (SGOT) 25 U/L (5-34); Albumin 3.7 g/dL (3.4-4.8); Alkaline Phosphatase 253 U/L (40-110); Anion Gap 10 mmol/L (10-20); BUN (Urea Nitrogen) 9 mg/dL (8.4-25.7); Bilirubin, Total 0.5 mg/dL (0.2-1.2); Calc. Creatinine Clearance 139 mL/min (70-130); Calcium 9.3 mg/dL (7.8-10.44); Carbon Dioxide 27 mmol/L (23-31); Chloride 107 mmol/L (98-107); Globulin 3.6 g/dL (2.4-3.5); Glucose 117 mg/dL (83-110); Potassium 3.7 mmol/L (3.5-5.1); Protein, Total 7.3 g/dL (5.8-8.1); Sodium 140 mmol/L (136-145)
[2021-03-20] MEDS ORDERED: DULoxetine 60 MG CAP PO SCH (13:30)
[2021-03-20] MEDS ORDERED: DULoxetine 30 MG CAP PO SCH (14:30)
[2021-03-20] MEDS: Pregabalin 50 MG CAP PO SCH ×2 (16:37→20:24)
[2021-03-20] MEDS: Enoxaparin Sodium 40 MG/0.4 ML SYRINGE SC SCH (20:24)
[2021-03-20] MEDS: Spironolactone 25 MG TAB PO SCH (20:32)
[2021-03-20] MEDS ORDERED: Melatonin 3 MG TAB PO PRN (21:00)
[2021-03-21] MEDS: oxyCODONE 5 MG TAB PO PRN ×4 (01:49→20:51)
[2021-03-21] MEDS: Acetaminophen 325 MG TAB PO PRN ×4 (01:50→20:52)
[2021-03-21] MEDS: Budesonide 0.5 MG/2 ML NEB NEB SCH ×2 (07:41→18:31)
[2021-03-21] MEDS: Amlodipine 10 MG TAB PO SCH (08:09)
[2021-03-21] MEDS: DULoxetine 30 MG CAP PO SCH (08:09)
[2021-03-21] MEDS: Pregabalin 50 MG CAP PO SCH ×3 (08:10→20:51)
[2021-03-21] MEDS: Tamsulosin HCl 0.4 MG CAP PO SCH (08:10)
[2021-03-21] MEDS ORDERED: DULoxetine 30 MG CAP PO SCH (09:00)
[2021-03-21] MEDS: Sodium Chloride 0.9% 1,000 ML IV SCH (14:21)
[2021-03-21] MEDS: Enoxaparin Sodium 40 MG/0.4 ML SYRINGE SC SCH (20:50)
[2021-03-21] MEDS: Spironolactone 25 MG TAB PO SCH (20:57)
[2021-03-22] MEDS: oxyCODONE 5 MG TAB PO PRN ×4 (03:49→20:13)
[2021-03-22] MEDS: Acetaminophen 325 MG TAB PO PRN ×3 (03:50→14:35)
[2021-03-22] MEDS: Budesonide 0.5 MG/2 ML NEB NEB SCH ×2 (06:58→19:40)
[2021-03-22] MEDS: Amlodipine 10 MG TAB PO SCH (09:01)
[2021-03-22] MEDS: DULoxetine 30 MG CAP PO SCH (09:02)
[2021-03-22] MEDS: Pregabalin 50 MG CAP PO SCH ×3 (09:02→20:12)
[2021-03-22] MEDS: Tamsulosin HCl 0.4 MG CAP PO SCH (09:04)
[2021-03-22] MEDS: Spironolactone 25 MG TAB PO SCH (20:12)
[2021-03-22] MEDS: Enoxaparin Sodium 40 MG/0.4 ML SYRINGE SC SCH (20:13)
[2021-03-23] MEDS: oxyCODONE 5 MG TAB PO PRN ×4 (02:15→20:48)
[2021-03-23] MEDS: Budesonide 0.5 MG/2 ML NEB NEB SCH ×2 (07:05→19:50)
[2021-03-23] MEDS ORDERED: GUAIFENESIN SF SOLN 200 MG/10 ML UDCUP PO PRN (08:12)
[2021-03-23] MEDS: DULoxetine 30 MG CAP PO SCH (08:38)
[2021-03-23] MEDS: Tamsulosin HCl 0.4 MG CAP PO SCH (08:38)
[2021-03-23] MEDS: Amlodipine 10 MG TAB PO SCH (08:38)
[2021-03-23] MEDS: Pregabalin 50 MG CAP PO SCH ×3 (09:41→20:45)
[2021-03-23] MEDS ORDERED: Amoxicillin/Potassium Clav 875 MG TAB PO SCH ×2 (12:00→21:00)
[2021-03-23 12:58] LABS: Anion Gap 14 mmol/L (10-20); BUN (Urea Nitrogen) 19 mg/dL (8.4-25.7); CRP (Inflammatory) 4.08 mg/dL (= or < 0.5); Calc. Creatinine Clearance 134 mL/min (70-130); Calcium 9.2 mg/dL (7.8-10.44); Carbon Dioxide 25 mmol/L (23-31); Chloride 97 mmol/L (98-107); Glucose 94 mg/dL (83-110); Potassium 4.5 mmol/L (3.5-5.1); Sodium 131 mmol/L (136-145)
[2021-03-23 13:15] LABS: Hemoglobin 11.5 g/dL (13.5-17.5); Mean Corpuscular HGB CONC 29.9 g/dL (32.0-36.0); Mean Corpuscular Hemoglobin 25.9 pg (27.0-33.0); Mean Corpuscular Volume 86.7 fl (81.2-95.1); Mean Platelet Volume 10.6 fl (7.4-10.4); Platelet Count 304 10x3/uL (150-450); RBC Distribution Width 16.9 % (11.5-14.5); Red Blood Cell (RBC) Count 4.44 10x6/uL (4.32-5.72); White Blood Cell (WBC) Count 5.6 10x3/uL (3.5-10.5)
[2021-03-23 13:32] LABS: MDiff Complete? YES
[2021-03-23 13:54] LABS: Band 2 % (5-11); Lymphocytes 19 % (21-51); Monocytes 14 % (0-10); Neutrophil 65 % (42-75)
[2021-03-23 13:55] LABS: Platelet Morphology Comment Appears Adequate
[2021-03-23] MEDS: Spironolactone 25 MG TAB PO SCH (20:45)
[2021-03-23] MEDS: metroNIDAZOLE 500 MG TAB PO SCH (20:45)
[2021-03-23] MEDS: Enoxaparin Sodium 40 MG/0.4 ML SYRINGE SC SCH (20:52)
[2021-03-24] MEDS: oxyCODONE 5 MG TAB PO PRN ×2 (04:15→09:40)
[2021-03-24] MEDS: Budesonide 0.5 MG/2 ML NEB NEB SCH (07:36)
[2021-03-24] MEDS ORDERED: Spironolactone 25 MG TAB PO SCH (08:00)
[2021-03-24] MEDS: Pregabalin 25 MG CAP PO SCH (08:01)
[2021-03-24] MEDS: Pregabalin 50 MG CAP PO SCH (09:39)
[2021-03-24] MEDS: Tamsulosin HCl 0.4 MG CAP PO SCH (09:40)
[2021-03-24] MEDS: metroNIDAZOLE 500 MG TAB PO SCH (09:40)
[2021-03-24] MEDS: Amlodipine 10 MG TAB PO SCH (09:40)
[2021-03-24] MEDS: DULoxetine 30 MG CAP PO SCH (09:40)
[2021-03-24 12:39] VITALS: BP 107/59; TEMP 98.1
== END 2021-03-24 14:54 | disposition home or self-care (01) | DRG 393 ==
LOC: CSHERS 19:39 → UNDOADMOB 03-18 02:57 → CSHTELE 03-18 02:57 → OBSVTOIN 03-19 15:10
PROVIDERS: ADMIT Surgery; ATTEND Internal Medicine
DX: K43.9 Ventral hernia without obstruction or gangrene (principal); J18.9 Pneumonia, unspecified organism; S22.32XA Fracture of one rib, left side, initial encounter for closed fracture; J44.0 Chronic obstructive pulmonary disease with (acute) lower respiratory infection; E11.40 Type 2 diabetes mellitus with diabetic neuropathy, unspecified; Z20.822 Contact with and (suspected) exposure to COVID-19; K70.30 Alcoholic cirrhosis of liver without ascites; F32.A Depression, unspecified; F41.9 Anxiety disorder, unspecified; W19.XXXA Unspecified fall, initial encounter; K21.9 Gastro-esophageal reflux disease without esophagitis; Z85.46 Personal history of malignant neoplasm of prostate; Z98.890 Other specified postprocedural states; Z87.891 Personal history of nicotine dependence; Z89.429 Acquired absence of other toe(s), unspecified side
CPT/HCPCS: 36415; 71045; 71260; 74177; 80048; 80053; 83605; 83690; 85025; 85610; 85730; 86140; 93005; 93010; 94640; 94760; 94762; 96372; 96374; 96375; 96376; G0378; J0360; J1650; J2270; J2543; J3411; J3490; J7042; J7050; J7620; J7626; U0002

== ENCOUNTER 2021-03-30 10:37 | Outpatient (CLI) | payer MEDICARE, MEDICAID | END 2021-03-30 10:38 | disposition home or self-care (01) | LOC: EDBD → CSHWCC 10:37 | PROVIDERS: ATTEND Nurse Practitioner Family | DX: S91.101D Unspecified open wound of right great toe without damage to nail, subsequent encounter (principal); R60.0 Localized edema ==

== ENCOUNTER 2021-03-30 11:54 | Inpatient (IN) | payer MEDICAID, MEDICARE ==
[2021-03-30 12:35] LABS: #Monocytes 0.4 10x3/uL (0.0-1.1); #Neutrophils 3.4 10x3/uL (1.5-8.4); %Basophils 0.2 % (0.0-2.0); %Eosinophils 0.7 % (0.0-6.0); %Lymphocytes 12.1 % (18.0-47.0); %Monocytes 8.5 % (0.0-10.0); %Neutrophils 77.4 % (40.0-75.0); Hemoglobin 10.9 g/dL (13.5-17.5); Mean Corpuscular HGB CONC 29.6 g/dL (32.0-36.0); Mean Corpuscular Volume 87.6 fl (81.2-95.1); Mean Platelet Volume 10.4 fl (7.4-10.4); Platelet Count 255 10x3/uL (150-450); RBC Distribution Width 17.3 % (11.5-14.5); White Blood Cell (WBC) Count 4.4 10x3/uL (3.5-10.5)
[2021-03-30] MEDS ORDERED: methylPREDNISolone Sod Succ/PF 125 MG/2 ML VIAL ONE (12:41)
[2021-03-30] MEDS ORDERED: Magnesium 2 GM/50 ML BAG (IN WATER) ONE (12:42)
[2021-03-30 12:46] LABS: ALT (SGPT) 24 U/L (8-55); AST (SGOT) 36 U/L (5-34); Albumin 3.7 g/dL (3.4-4.8); Alkaline Phosphatase 198 U/L (40-110); Anion Gap 14 mmol/L (10-20); BUN (Urea Nitrogen) 23 mg/dL (8.4-25.7); Bilirubin, Total 0.3 mg/dL (0.2-1.2); CK (CPK) 66 U/L (30-200); Calc. Creatinine Clearance 0 mL/min (70-130); Calcium 8.3 mg/dL (7.8-10.44); Carbon Dioxide 25 mmol/L (23-31); Chloride 103 mmol/L (98-107); Globulin 2.6 g/dL (2.4-3.5); Glucose 99 mg/dL (83-110); Potassium 4.7 mmol/L (3.5-5.1); Protein, Total 6.3 g/dL (5.8-8.1); Sodium 137 mmol/L (136-145)
[2021-03-30] MEDS ORDERED: cefTRIAXone\\ROCEPHIN 1 GM VIAL ONE (14:41)
[2021-03-30] MEDS ORDERED: Azithromycin 500 MG VIAL ONE (14:41)
[2021-03-30] MEDS ORDERED: HYDROcodone/Acetaminophen 5/325 mg Tablet ONE (15:22)
[2021-03-30] MEDS ORDERED: HYDROcodone/Acetaminophen 10/325 mg Tablet ONE (15:33)
[2021-03-30 16:00] LABS: SARS-CoV-2 NAA Rapid Test DETECTED (NotDetected)
[2021-03-30 16:29] LABS: Troponin I 0.014 ng/mL (< 0.028)
[2021-03-30] MEDS ORDERED: Acetaminophen 325 MG TAB PO PRN (17:17)
[2021-03-30] MEDS ORDERED: Ondansetron PF 4 MG/2 ML Vial IVP PRN (17:17)
[2021-03-30] MEDS ORDERED: Acetaminophen 650 MG Suppository PR PRN (17:17)
[2021-03-30] MEDS ORDERED: Ondansetron ODT 4 MG TAB PO PRN (17:17)
[2021-03-30] MEDS ORDERED: HYDROcodone/Acetaminophen 7.5/325 mg Tablet PO PRN (18:16)
[2021-03-30 19:18] LABS: Troponin I 0.013 ng/mL (< 0.028)
[2021-03-30] MEDS ORDERED: Benzonatate 100 MG CAP PO PRN (20:55)
[2021-03-30] MEDS ORDERED: Guaifenesin DM 100-10/5 ML UDCUP PO PRN (20:55)
[2021-03-30] MEDS ORDERED: Vancomycin 1.5 GRAM/300 ML BAG 1.5 GM in Premix Bag 1 BAG IVPB SCH (21:00)
[2021-03-30] MEDS ORDERED: Cefepime 2 GM VIAL ONE (21:25)
[2021-03-30] MEDS: Cefepime 2 GM in Sodium Chloride 0.9% 100 ML IVPB SCH (21:25)
[2021-03-30] MEDS ORDERED: REMDESIVIR 200 MG in Sodium Chloride 0.9% 250 ML 210 ML IV SCH (22:00)
[2021-03-30] MEDS ORDERED: HYDROcodone/Acetaminophen 7.5/325 mg Tablet ONE (22:19)
[2021-03-30] MEDS ORDERED: Pregabalin 50 MG CAP ONE (22:19)
[2021-03-30] MEDS: Pregabalin 50 MG CAP PO SCH (22:21)
[2021-03-31] MEDS ORDERED: Acetaminophen 325 MG TAB PO PRN (02:55)
[2021-03-31] MEDS ORDERED: oxyCODONE ER 10 MG TAB PO SCH (03:00)
[2021-03-31] MEDS ORDERED: oxyCODONE ER 10 MG TAB ONE (04:15)
[2021-03-31 04:26] LABS: #Monocytes 0.2 10x3/uL (0.0-1.1); #Neutrophils 1.6 10x3/uL (1.5-8.4); %Basophils 0.9 % (0.0-2.0); %Lymphocytes 16.4 % (18.0-47.0); %Monocytes 8.8 % (0.0-10.0); %Neutrophils 71.7 % (40.0-75.0); Hemoglobin 11.3 g/dL (13.5-17.5); Mean Corpuscular HGB CONC 28.8 g/dL (32.0-36.0); Mean Corpuscular Hemoglobin 25.7 pg (27.0-33.0); Mean Corpuscular Volume 89.3 fl (81.2-95.1); Mean Platelet Volume 10.3 fl (7.4-10.4); Platelet Count 235 10x3/uL (150-450); RBC Distribution Width 17.5 % (11.5-14.5); Red Blood Cell (RBC) Count 4.39 10x6/uL (4.32-5.72); White Blood Cell (WBC) Count 2.3 10x3/uL (3.5-10.5)
[2021-03-31 04:49] LABS: Anion Gap 14 mmol/L (10-20); BUN (Urea Nitrogen) 19 mg/dL (8.4-25.7); Calc. Creatinine Clearance 0 mL/min (70-130); Calcium 8.2 mg/dL (7.8-10.44); Carbon Dioxide 27 mmol/L (23-31); Chloride 105 mmol/L (98-107); Glucose 169 mg/dL (83-110); Potassium 5.5 mmol/L (3.5-5.1); Sodium 140 mmol/L (136-145)
[2021-03-31 04:51] LABS: CRP (Inflammatory) 4.73 mg/dL (= or < 0.5); Magnesium 2.3 mg/dL (1.6-2.6)
[2021-03-31 06:05] LABS: Large Platelets SLIGHT; Platelet Morphology Comment Appears Adequate
[2021-03-31 06:06] LABS: Anisocytosis SLIGHT = 6-15 cells (100X) (0-5/hpf); Macrocytosis SLIGHT = 6-15 cells (100X) (0-5/hpf); Microcytosis SLIGHT = 6-15 cells (100X) (0-5/hpf)
[2021-03-31] MEDS ORDERED: Budesonide 0.25 MG/2 ML NEB INH SCH (06:30)
[2021-03-31 06:51] VITALS: BMI 28.7
[2021-03-31] MEDS ORDERED: Ventolin HFA Inhaler 60 PUFF INHALER INH PRN (06:55)
[2021-03-31] MEDS ORDERED: Dexamethasone 4 MG TAB PO SCH (08:00)
[2021-03-31] MEDS: Cefepime 2 GM in Sodium Chloride 0.9% 100 ML IVPB SCH (08:52)
[2021-03-31] MEDS: Ascorbic Acid 500 mg Chewable Tablet PO SCH (08:53)
[2021-03-31] MEDS: Pregabalin 50 MG CAP PO SCH ×3 (08:53→21:01)
[2021-03-31] MEDS: DULoxetine 30 MG CAP PO SCH (08:53)
[2021-03-31] MEDS: Tamsulosin HCl 0.4 MG CAP PO SCH (08:53)
[2021-03-31] MEDS: Enoxaparin Sodium 40 MG/0.4 ML SYRINGE SC SCH (08:53)
[2021-03-31] MEDS: Zinc Sulfate 220 MG CAP PO SCH (08:53)
[2021-03-31] MEDS: Amlodipine 10 MG TAB PO SCH (08:54)
[2021-03-31 09:07] LABS: PTT 30.9 sec (22.0-33.0); Prothrombin Time 11.3 sec (9.5-12.1)
[2021-03-31 09:37] LABS: Magnesium 2.3 mg/dL (1.6-2.6); Phosphorus 2.7 mg/dL (2.3-4.7)
[2021-03-31] MEDS: oxyCODONE 5 MG TAB PO PRN ×3 (11:14→21:18)
[2021-03-31] MEDS ORDERED: Vancomycin HCl 1 GM in Sodium Chloride 0.9% 250 ML 250 ML IVPB SCH (12:00)
[2021-03-31 12:27] LABS: Anion Gap 13 mmol/L (10-20); BUN (Urea Nitrogen) 20 mg/dL (8.4-25.7); Calc. Creatinine Clearance 106 mL/min (70-130); Calcium 8.5 mg/dL (7.8-10.44); Carbon Dioxide 23 mmol/L (23-31); Chloride 107 mmol/L (98-107); Glucose 184 mg/dL (83-110); Sodium 138 mmol/L (136-145)
[2021-03-31 14:05] LABS: Legionella Urinary Ag Negative (Negative); Strep pneumo Urine Ag NEGATIVE (NEGATIVE)
[2021-03-31] MEDS ORDERED: Pregabalin 50 MG CAP ONE (15:30)
[2021-03-31] MEDS: Azithromycin 500 MG in Sodium Chloride 0.9% 250 ML 250 ML IVPB SCH (17:09)
[2021-03-31] MEDS: cefTRIAXone\\ROCEPHIN 1 GM in Sodium Chloride 0.9% 100 ML IVPB SCH (17:10)
[2021-03-31] MEDS: Mometasone 100 MCG/PUFF (1 INHALER) INH SCH (19:46)
[2021-03-31] MEDS: Dexamethasone 20 MG/5 ML VIAL SLOW IVP SCH (21:00)
[2021-03-31] MEDS: REMDESIVIR 100 MG in Sodium Chloride 0.9% 250 ML 230 ML IV SCH (21:01)
[2021-04-01] MEDS: oxyCODONE 5 MG TAB PO PRN ×6 (01:23→22:04)
[2021-04-01 05:15] LABS: #Monocytes 0.4 10x3/uL (0.0-1.1); #Neutrophils 3.2 10x3/uL (1.5-8.4); %Basophils 0.2 % (0.0-2.0); %Lymphocytes 11.8 % (18.0-47.0); %Monocytes 9.9 % (0.0-10.0); %Neutrophils 76.2 % (40.0-75.0); Mean Corpuscular HGB CONC 29.4 g/dL (32.0-36.0); Mean Corpuscular Hemoglobin 26.3 pg (27.0-33.0); Mean Corpuscular Volume 89.3 fl (81.2-95.1); Mean Platelet Volume 10.5 fl (7.4-10.4); Platelet Count 260 10x3/uL (150-450); RBC Distribution Width 17.7 % (11.5-14.5); Red Blood Cell (RBC) Count 4.19 10x6/uL (4.32-5.72); White Blood Cell (WBC) Count 4.3 10x3/uL (3.5-10.5)
[2021-04-01 05:46] LABS: Anion Gap 13 mmol/L (10-20); BUN (Urea Nitrogen) 19 mg/dL (8.4-25.7); Calc. Creatinine Clearance 109 mL/min (70-130); Calcium 8.5 mg/dL (7.8-10.44); Carbon Dioxide 25 mmol/L (23-31); Chloride 107 mmol/L (98-107); Glucose 139 mg/dL (83-110); Sodium 140 mmol/L (136-145)
[2021-04-01] MEDS: Mometasone 100 MCG/PUFF (1 INHALER) INH SCH ×2 (05:46→19:16)
[2021-04-01 06:21] LABS: Platelet Morphology Comment Appears Adequate
[2021-04-01 06:22] LABS: Anisocytosis SLIGHT = 6-15 cells (100X) (0-5/hpf); Large Platelets SLIGHT
[2021-04-01] MEDS: Amlodipine 10 MG TAB PO SCH (09:43)
[2021-04-01] MEDS: Ascorbic Acid 500 mg Chewable Tablet PO SCH (09:43)
[2021-04-01] MEDS: Dexamethasone 20 MG/5 ML VIAL SLOW IVP SCH ×2 (09:44→21:12)
[2021-04-01] MEDS: Enoxaparin Sodium 40 MG/0.4 ML SYRINGE SC SCH (09:44)
[2021-04-01] MEDS: DULoxetine 30 MG CAP PO SCH (09:44)
[2021-04-01] MEDS: Tamsulosin HCl 0.4 MG CAP PO SCH (09:44)
[2021-04-01] MEDS: Zinc Sulfate 220 MG CAP PO SCH (09:45)
[2021-04-01] MEDS: Pregabalin 50 MG CAP PO SCH ×3 (09:54→21:14)
[2021-04-01] MEDS: Azithromycin 500 MG in Sodium Chloride 0.9% 250 ML 250 ML IVPB SCH (17:57)
[2021-04-01] MEDS: cefTRIAXone\\ROCEPHIN 1 GM in Sodium Chloride 0.9% 100 ML IVPB SCH (17:57)
[2021-04-01] MEDS: REMDESIVIR 100 MG in Sodium Chloride 0.9% 250 ML 230 ML IV SCH (21:12)
[2021-04-02] MEDS: oxyCODONE 5 MG TAB PO PRN ×6 (02:10→23:35)
[2021-04-02 05:10] LABS: #Monocytes 0.4 10x3/uL (0.0-1.1); #Neutrophils 3.2 10x3/uL (1.5-8.4); %Basophils 0.2 % (0.0-2.0); %Lymphocytes 10.9 % (18.0-47.0); %Monocytes 9.2 % (0.0-10.0); Hemoglobin 11.6 g/dL (13.5-17.5); Mean Corpuscular HGB CONC 29.1 g/dL (32.0-36.0); Mean Corpuscular Hemoglobin 25.8 pg (27.0-33.0); Mean Corpuscular Volume 88.4 fl (81.2-95.1); Mean Platelet Volume 10.3 fl (7.4-10.4); Platelet Count 239 10x3/uL (150-450); RBC Distribution Width 17.5 % (11.5-14.5); White Blood Cell (WBC) Count 4.1 10x3/uL (3.5-10.5)
[2021-04-02 05:23] LABS: Anion Gap 14 mmol/L (10-20); BUN (Urea Nitrogen) 23 mg/dL (8.4-25.7); Calc. Creatinine Clearance 119 mL/min (70-130); Calcium 8.5 mg/dL (7.8-10.44); Carbon Dioxide 24 mmol/L (23-31); Chloride 106 mmol/L (98-107); Glucose 141 mg/dL (83-110); Sodium 139 mmol/L (136-145)
[2021-04-02] MEDS: Mometasone 100 MCG/PUFF (1 INHALER) INH SCH ×2 (07:25→18:30)
[2021-04-02] MEDS: Zinc Sulfate 220 MG CAP PO SCH (07:43)
[2021-04-02] MEDS: Dexamethasone 20 MG/5 ML VIAL SLOW IVP SCH ×2 (07:43→22:07)
[2021-04-02] MEDS: Pregabalin 50 MG CAP PO SCH ×3 (07:44→22:00)
[2021-04-02] MEDS: Amlodipine 10 MG TAB PO SCH (07:45)
[2021-04-02] MEDS: Ascorbic Acid 500 mg Chewable Tablet PO SCH (07:46)
[2021-04-02] MEDS: DULoxetine 30 MG CAP PO SCH (07:46)
[2021-04-02] MEDS: Tamsulosin HCl 0.4 MG CAP PO SCH (07:46)
[2021-04-02] MEDS: Enoxaparin Sodium 40 MG/0.4 ML SYRINGE SC SCH (07:47)
[2021-04-02] MEDS: cefTRIAXone\\ROCEPHIN 1 GM in Sodium Chloride 0.9% 100 ML IVPB SCH (16:16)
[2021-04-02] MEDS: Azithromycin 500 MG in Sodium Chloride 0.9% 250 ML 250 ML IVPB SCH (16:18)
[2021-04-02] MEDS: REMDESIVIR 100 MG in Sodium Chloride 0.9% 250 ML 230 ML IV SCH (22:09)
[2021-04-03] MEDS: oxyCODONE 5 MG TAB PO PRN ×4 (03:40→16:11)
[2021-04-03 04:48] LABS: #Monocytes 0.5 10x3/uL (0.0-1.1); #Neutrophils 4.6 10x3/uL (1.5-8.4); %Basophils 0.2 % (0.0-2.0); %Lymphocytes 9.8 % (18.0-47.0); %Monocytes 9.3 % (0.0-10.0); %Neutrophils 79.1 % (40.0-75.0); Anion Gap 13 mmol/L (10-20); BUN (Urea Nitrogen) 25 mg/dL (8.4-25.7); Calc. Creatinine Clearance 106 mL/min (70-130); Calcium 8.8 mg/dL (7.8-10.44); Carbon Dioxide 26 mmol/L (23-31); Chloride 105 mmol/L (98-107); Glucose 135 mg/dL (83-110); Hemoglobin 12.8 g/dL (13.5-17.5); Mean Corpuscular HGB CONC 29.9 g/dL (32.0-36.0); Mean Corpuscular Hemoglobin 25.6 pg (27.0-33.0); Mean Corpuscular Volume 85.6 fl (81.2-95.1); Mean Platelet Volume 10.5 fl (7.4-10.4); Platelet Count 261 10x3/uL (150-450); Potassium 4.9 mmol/L (3.5-5.1); RBC Distribution Width 17.5 % (11.5-14.5); Sodium 139 mmol/L (136-145); White Blood Cell (WBC) Count 5.8 10x3/uL (3.5-10.5)
[2021-04-03 05:25] LABS: Hypochromia SLIGHT = 6-15 cells (100X) (0-5/hpf)
[2021-04-03] MEDS: DULoxetine 30 MG CAP PO SCH (07:56)
[2021-04-03] MEDS: Pregabalin 50 MG CAP PO SCH (07:56)
[2021-04-03] MEDS: Zinc Sulfate 220 MG CAP PO SCH (07:57)
[2021-04-03] MEDS: Tamsulosin HCl 0.4 MG CAP PO SCH (07:58)
[2021-04-03] MEDS: Ascorbic Acid 500 mg Chewable Tablet PO SCH (07:58)
[2021-04-03] MEDS: Amlodipine 10 MG TAB PO SCH (07:58)
[2021-04-03] MEDS: Enoxaparin Sodium 40 MG/0.4 ML SYRINGE SC SCH (07:59)
[2021-04-03] MEDS: Dexamethasone 20 MG/5 ML VIAL SLOW IVP SCH (08:00)
[2021-04-03] MEDS ORDERED: FLU VACC QS2021-22(65YR UP)/PF 240 MCG/0.7 ML SYRINGE IM ONE (09:15)
[2021-04-03] MEDS: Mometasone 100 MCG/PUFF (1 INHALER) INH SCH (09:42)
[2021-04-03 12:46] VITALS: BP 154/91; TEMP 98
[2021-04-03] MEDS: REMDESIVIR 100 MG in Sodium Chloride 0.9% 250 ML 230 ML IV SCH (16:10)
[2021-04-03] MEDS ORDERED: Famotidine 20 MG TAB PO SCH (21:00)
== END 2021-04-03 18:38 | disposition home or self-care (01) | DRG 177 ==
LOC: CSHERS 11:54 → INTOOBSV 20:17 → OBSVTOIN 20:17 → CSHERHOLD 20:17 → CSHTELE 03-31 08:30
PROVIDERS: ADMIT Family Medicine; ATTEND Family Medicine
PROC: XW033E5 Introduction of Remdesivir Anti-infective into Peripheral Vein, Percutaneous Approach, New Technology Group 5 (ICD-10-PCS; principal; 2021-03-30)
PROC: 8E0ZXY6 Isolation (ICD-10-PCS; 2021-03-30)
PROC: 3E0333Z Introduction of Anti-inflammatory into Peripheral Vein, Percutaneous Approach (ICD-10-PCS; 2021-03-31)
DX: U07.1 COVID-19 (principal); J12.82 Pneumonia due to coronavirus disease 2019; J96.21 Acute and chronic respiratory failure with hypoxia; J44.0 Chronic obstructive pulmonary disease with (acute) lower respiratory infection; J44.1 Chronic obstructive pulmonary disease with (acute) exacerbation; K70.30 Alcoholic cirrhosis of liver without ascites; I10 Essential (primary) hypertension; G89.29 Other chronic pain; Z66 Do not resuscitate; K21.9 Gastro-esophageal reflux disease without esophagitis; E11.42 Type 2 diabetes mellitus with diabetic polyneuropathy; N40.0 Benign prostatic hyperplasia without lower urinary tract symptoms; F41.9 Anxiety disorder, unspecified; F32.A Depression, unspecified; E87.5 Hyperkalemia; Z85.46 Personal history of malignant neoplasm of prostate; Z87.891 Personal history of nicotine dependence; Z79.899 Other long term (current) drug therapy; Z99.81 Dependence on supplemental oxygen; Z79.2 Long term (current) use of antibiotics; Z86.73 Personal history of transient ischemic attack (TIA), and cerebral infarction without residual deficits; Z89.429 Acquired absence of other toe(s), unspecified side
CPT/HCPCS: 36415; 71275; 80048; 80053; 82550; 83605; 83735; 84100; 84145; 84484; 85025; 85610; 85730; 86140; 87040; 87070; 87081; 87205; 87449; 87899; 93005; 93010; 94664; 94760; J0248; J0456; J0692; J0696; J1100; J1650; J2930; J3370; J3475; J3490; J7050; J7620; J8540; U0002

== ENCOUNTER 2021-04-07 11:16 | Outpatient (CLI) | payer MEDICARE, MEDICAID | END 2021-04-07 11:17 | disposition home or self-care (01) | LOC: CSHWCC 11:16 | PROVIDERS: ATTEND Nurse Practitioner Family | DX: I87.313 Chronic venous hypertension (idiopathic) with ulcer of bilateral lower extremity (principal); L97.321 Non-pressure chronic ulcer of left ankle limited to breakdown of skin; L97.811 Non-pressure chronic ulcer of other part of right lower leg limited to breakdown of skin; S91.101D Unspecified open wound of right great toe without damage to nail, subsequent encounter; R60.0 Localized edema ==

== ENCOUNTER 2021-04-10 10:55 | Outpatient (CLI) | payer MEDICARE, MEDICAID | END 2021-04-10 10:56 | disposition home or self-care (01) | LOC: CSHWCC 10:55 | PROVIDERS: ATTEND Nurse Practitioner Family | DX: I87.311 Chronic venous hypertension (idiopathic) with ulcer of right lower extremity (principal); L97.811 Non-pressure chronic ulcer of other part of right lower leg limited to breakdown of skin; S91.101D Unspecified open wound of right great toe without damage to nail, subsequent encounter; R60.0 Localized edema | CPT/HCPCS: 29581; 97139; G0463; 99213 ==

== ENCOUNTER 2021-04-14 15:27 | Outpatient (CLI) | payer MEDICARE, MEDICAID | END 2021-04-14 15:28 | disposition home or self-care (01) | LOC: CSHWCC 15:27 | PROVIDERS: ATTEND Nurse Practitioner Family | DX: I87.313 Chronic venous hypertension (idiopathic) with ulcer of bilateral lower extremity (principal); L97.819 Non-pressure chronic ulcer of other part of right lower leg with unspecified severity; L97.829 Non-pressure chronic ulcer of other part of left lower leg with unspecified severity; L98.429 Non-pressure chronic ulcer of back with unspecified severity; S91.101D Unspecified open wound of right great toe without damage to nail, subsequent encounter; R60.0 Localized edema | CPT/HCPCS: 29581; 97139; G0463; 99213 ==

== ENCOUNTER 2021-04-17 10:09 | Outpatient (CLI) | payer MEDICARE | END 2021-04-17 10:10 | disposition home or self-care (01) | LOC: CSHWCC 10:09 | PROVIDERS: ATTEND Nurse Practitioner Family | DX: I87.313 Chronic venous hypertension (idiopathic) with ulcer of bilateral lower extremity (principal); S91.101D Unspecified open wound of right great toe without damage to nail, subsequent encounter; L97.321 Non-pressure chronic ulcer of left ankle limited to breakdown of skin; L97.811 Non-pressure chronic ulcer of other part of right lower leg limited to breakdown of skin; L98.429 Non-pressure chronic ulcer of back with unspecified severity; R60.0 Localized edema | CPT/HCPCS: 29581; 99213; G0463 ==

== ENCOUNTER 2021-04-21 13:19 | Outpatient (CLI) | payer MEDICARE | END 2021-04-21 13:20 | disposition home or self-care (01) | LOC: CSHWCC 13:19 | PROVIDERS: ATTEND Nurse Practitioner Family | DX: S91.101D Unspecified open wound of right great toe without damage to nail, subsequent encounter (principal); I87.312 Chronic venous hypertension (idiopathic) with ulcer of left lower extremity; L97.321 Non-pressure chronic ulcer of left ankle limited to breakdown of skin; I87.311 Chronic venous hypertension (idiopathic) with ulcer of right lower extremity; L97.811 Non-pressure chronic ulcer of other part of right lower leg limited to breakdown of skin; R60.0 Localized edema; L98.429 Non-pressure chronic ulcer of back with unspecified severity | CPT/HCPCS: 29581; 97139; G0463; 99214 ==

== ENCOUNTER 2021-04-24 08:30 | Outpatient (CLI) | payer MEDICARE, MEDICAID | END 2021-04-24 08:31 | disposition home or self-care (01) | LOC: EDBD → CSHWCC 08:30 | PROVIDERS: ATTEND Nurse Practitioner Family | DX: L98.429 Non-pressure chronic ulcer of back with unspecified severity (principal); S91.101D Unspecified open wound of right great toe without damage to nail, subsequent encounter; R60.0 Localized edema | CPT/HCPCS: 29581; 97139; G0463; 99213 ==

== ENCOUNTER 2021-04-28 14:43 | Outpatient (CLI) | payer MEDICARE | END 2021-04-28 14:44 | disposition home or self-care (01) | LOC: CSHWCC 14:43 | PROVIDERS: ATTEND Nurse Practitioner Family | DX: S91.101D Unspecified open wound of right great toe without damage to nail, subsequent encounter (principal); I87.312 Chronic venous hypertension (idiopathic) with ulcer of left lower extremity; L97.321 Non-pressure chronic ulcer of left ankle limited to breakdown of skin; I87.311 Chronic venous hypertension (idiopathic) with ulcer of right lower extremity; L97.811 Non-pressure chronic ulcer of other part of right lower leg limited to breakdown of skin; L98.429 Non-pressure chronic ulcer of back with unspecified severity; R60.0 Localized edema | CPT/HCPCS: 29581; 97139; G0463; 99213 ==

== ENCOUNTER 2021-05-01 10:33 | Outpatient (CLI) | payer MEDICARE | END 2021-05-01 10:34 | disposition home or self-care (01) | LOC: CSHWCC 10:33 | PROVIDERS: ATTEND Nurse Practitioner Family | DX: I87.313 Chronic venous hypertension (idiopathic) with ulcer of bilateral lower extremity (principal); L97.329 Non-pressure chronic ulcer of left ankle with unspecified severity; L97.819 Non-pressure chronic ulcer of other part of right lower leg with unspecified severity; L98.429 Non-pressure chronic ulcer of back with unspecified severity; S91.101D Unspecified open wound of right great toe without damage to nail, subsequent encounter; R60.0 Localized edema | CPT/HCPCS: 29581; 97139; G0463; 99213 ==

== ENCOUNTER 2021-05-29 11:23 | Outpatient (CLI) | payer OTHER, MEDICAID, MEDICARE | END 2021-05-29 11:24 | disposition home or self-care (01) | LOC: CSHWCC 11:23 | PROVIDERS: ATTEND Nurse Practitioner Family | DX: S91.101D Unspecified open wound of right great toe without damage to nail, subsequent encounter (principal); S91.102D Unspecified open wound of left great toe without damage to nail, subsequent encounter; R60.0 Localized edema | CPT/HCPCS: 29581; 97139; G0463; 99213 ==

== ENCOUNTER 2021-06-02 10:10 | Outpatient (CLI) | payer OTHER, MEDICAID | END 2021-06-02 10:11 | disposition home or self-care (01) | LOC: CSHWCC 10:10 | PROVIDERS: ATTEND Nurse Practitioner Family | DX: I87.313 Chronic venous hypertension (idiopathic) with ulcer of bilateral lower extremity (principal); L97.321 Non-pressure chronic ulcer of left ankle limited to breakdown of skin; L97.811 Non-pressure chronic ulcer of other part of right lower leg limited to breakdown of skin; S91.101D Unspecified open wound of right great toe without damage to nail, subsequent encounter; S91.102D Unspecified open wound of left great toe without damage to nail, subsequent encounter; R60.0 Localized edema | CPT/HCPCS: 29581; 99213; G0463 ==

== ENCOUNTER 2021-06-05 09:24 | Outpatient (CLI) | payer MEDICARE, MEDICAID | END 2021-06-05 09:25 | disposition home or self-care (01) | LOC: CSHWCC 09:24 | PROVIDERS: ATTEND Nurse Practitioner Family | DX: I87.313 Chronic venous hypertension (idiopathic) with ulcer of bilateral lower extremity (principal); S91.101D Unspecified open wound of right great toe without damage to nail, subsequent encounter; S91.102D Unspecified open wound of left great toe without damage to nail, subsequent encounter; L97.321 Non-pressure chronic ulcer of left ankle limited to breakdown of skin; L97.811 Non-pressure chronic ulcer of other part of right lower leg limited to breakdown of skin; R60.0 Localized edema | CPT/HCPCS: 29581; 99213; G0463 ==

== ENCOUNTER 2021-06-08 14:35 | Outpatient (CLI) | payer MEDICARE, MEDICAID | END 2021-06-08 14:36 | disposition home or self-care (01) | LOC: CSHWCC 14:35 | PROVIDERS: ATTEND Nurse Practitioner Family | DX: I87.313 Chronic venous hypertension (idiopathic) with ulcer of bilateral lower extremity (principal); L97.321 Non-pressure chronic ulcer of left ankle limited to breakdown of skin; L97.811 Non-pressure chronic ulcer of other part of right lower leg limited to breakdown of skin; S91.101D Unspecified open wound of right great toe without damage to nail, subsequent encounter; S91.102D Unspecified open wound of left great toe without damage to nail, subsequent encounter; R60.0 Localized edema | CPT/HCPCS: 29581; 99213; G0463 ==

== ENCOUNTER 2021-06-19 10:39 | Outpatient (CLI) | payer MEDICARE, MEDICAID | END 2021-06-19 10:40 | disposition home or self-care (01) | LOC: CSHWCC 10:39 | PROVIDERS: ATTEND Nurse Practitioner Family | DX: I87.313 Chronic venous hypertension (idiopathic) with ulcer of bilateral lower extremity (principal); L97.321 Non-pressure chronic ulcer of left ankle limited to breakdown of skin; L97.811 Non-pressure chronic ulcer of other part of right lower leg limited to breakdown of skin; S91.101D Unspecified open wound of right great toe without damage to nail, subsequent encounter; R60.0 Localized edema | CPT/HCPCS: 29445; 29581 ==

== ENCOUNTER 2021-06-22 11:26 | Outpatient (CLI) | payer MEDICARE, MEDICAID | END 2021-06-22 11:27 | disposition home or self-care (01) | LOC: CSHWCC 11:26 | PROVIDERS: ATTEND Nurse Practitioner Family | DX: S91.101D Unspecified open wound of right great toe without damage to nail, subsequent encounter (principal); I87.312 Chronic venous hypertension (idiopathic) with ulcer of left lower extremity; L97.321 Non-pressure chronic ulcer of left ankle limited to breakdown of skin; I87.311 Chronic venous hypertension (idiopathic) with ulcer of right lower extremity; L97.811 Non-pressure chronic ulcer of other part of right lower leg limited to breakdown of skin; R60.0 Localized edema | CPT/HCPCS: 29581; 97139; G0463; 99213 ==

== ENCOUNTER 2021-06-25 13:00 | Outpatient (CLI) | payer MEDICARE, MEDICAID | END 2021-06-25 13:01 | disposition home or self-care (01) | LOC: CSHWCC 13:00 | PROVIDERS: ATTEND Nurse Practitioner Family | DX: I87.313 Chronic venous hypertension (idiopathic) with ulcer of bilateral lower extremity (principal); L97.321 Non-pressure chronic ulcer of left ankle limited to breakdown of skin; L97.811 Non-pressure chronic ulcer of other part of right lower leg limited to breakdown of skin; R60.0 Localized edema | CPT/HCPCS: 29581; 99213; G0463 ==

== ENCOUNTER 2021-07-02 11:24 | Outpatient (CLI) | payer MEDICARE, MEDICAID | END 2021-07-02 11:25 | disposition home or self-care (01) | LOC: CSHWCC 11:24 | PROVIDERS: ATTEND Nurse Practitioner Family | DX: I87.313 Chronic venous hypertension (idiopathic) with ulcer of bilateral lower extremity (principal); L97.321 Non-pressure chronic ulcer of left ankle limited to breakdown of skin; L97.811 Non-pressure chronic ulcer of other part of right lower leg limited to breakdown of skin; S91.101D Unspecified open wound of right great toe without damage to nail, subsequent encounter; R60.0 Localized edema ==

== ENCOUNTER 2021-07-06 10:10 | Outpatient (CLI) | payer MEDICARE, MEDICAID | END 2021-07-06 10:11 | disposition home or self-care (01) | LOC: CSHWCC 10:10 | PROVIDERS: ATTEND Nurse Practitioner Family | DX: I87.313 Chronic venous hypertension (idiopathic) with ulcer of bilateral lower extremity (principal); L97.321 Non-pressure chronic ulcer of left ankle limited to breakdown of skin; L97.811 Non-pressure chronic ulcer of other part of right lower leg limited to breakdown of skin; S91.101D Unspecified open wound of right great toe without damage to nail, subsequent encounter; R60.0 Localized edema | CPT/HCPCS: 29581; 99213; G0463 ==

== ENCOUNTER 2021-07-09 11:09 | Outpatient (CLI) | payer MEDICARE, MEDICAID | END 2021-07-09 11:10 | disposition home or self-care (01) | LOC: CSHWCC 11:09 | PROVIDERS: ATTEND Nurse Practitioner Family | DX: I87.313 Chronic venous hypertension (idiopathic) with ulcer of bilateral lower extremity (principal); L97.321 Non-pressure chronic ulcer of left ankle limited to breakdown of skin; L97.811 Non-pressure chronic ulcer of other part of right lower leg limited to breakdown of skin; S91.101D Unspecified open wound of right great toe without damage to nail, subsequent encounter; R60.0 Localized edema ==

== ENCOUNTER 2021-07-16 11:12 | Outpatient (CLI) | payer MEDICARE, MEDICAID | END 2021-07-16 11:13 | disposition home or self-care (01) | LOC: CSHWCC 11:12 | PROVIDERS: ATTEND Nurse Practitioner Family | DX: I87.313 Chronic venous hypertension (idiopathic) with ulcer of bilateral lower extremity (principal); L97.321 Non-pressure chronic ulcer of left ankle limited to breakdown of skin; L97.811 Non-pressure chronic ulcer of other part of right lower leg limited to breakdown of skin; S91.101D Unspecified open wound of right great toe without damage to nail, subsequent encounter; R60.0 Localized edema ==

== ENCOUNTER 2021-07-20 14:29 | Outpatient (CLI) | payer MEDICARE, MEDICAID | END 2021-07-20 14:30 | disposition home or self-care (01) | LOC: CSHWCC 14:29 | PROVIDERS: ATTEND Nurse Practitioner Family | DX: I87.312 Chronic venous hypertension (idiopathic) with ulcer of left lower extremity (principal); L97.312 Non-pressure chronic ulcer of right ankle with fat layer exposed; R60.0 Localized edema | CPT/HCPCS: 29581; 99213; G0463 ==

== ENCOUNTER 2021-07-24 08:20 | Outpatient (CLI) | payer MEDICARE, MEDICAID | END 2021-07-24 08:21 | disposition home or self-care (01) | LOC: CSHWCC 08:20 | PROVIDERS: ATTEND Nurse Practitioner Family | DX: I87.313 Chronic venous hypertension (idiopathic) with ulcer of bilateral lower extremity (principal); L97.321 Non-pressure chronic ulcer of left ankle limited to breakdown of skin; L97.811 Non-pressure chronic ulcer of other part of right lower leg limited to breakdown of skin; S91.101D Unspecified open wound of right great toe without damage to nail, subsequent encounter; R60.0 Localized edema | CPT/HCPCS: 29581; 97139; G0463; 99213 ==

== ENCOUNTER 2021-07-31 09:36 | Outpatient (CLI) | payer MEDICARE, OTHER, MEDICAID | END 2021-07-31 09:37 | disposition home or self-care (01) | LOC: CSHWCC 09:36 | PROVIDERS: ATTEND Nurse Practitioner Family | DX: I87.313 Chronic venous hypertension (idiopathic) with ulcer of bilateral lower extremity (principal); S91.101D Unspecified open wound of right great toe without damage to nail, subsequent encounter; L97.321 Non-pressure chronic ulcer of left ankle limited to breakdown of skin; L97.811 Non-pressure chronic ulcer of other part of right lower leg limited to breakdown of skin; R60.0 Localized edema | CPT/HCPCS: 29581 ==

== ENCOUNTER 2021-08-06 11:04 | Outpatient (CLI) | payer MEDICARE, MEDICAID | END 2021-08-06 11:05 | disposition home or self-care (01) | LOC: CSHWCC 11:04 | PROVIDERS: ATTEND Nurse Practitioner Family | DX: I87.313 Chronic venous hypertension (idiopathic) with ulcer of bilateral lower extremity (principal); L97.312 Non-pressure chronic ulcer of right ankle with fat layer exposed; L97.321 Non-pressure chronic ulcer of left ankle limited to breakdown of skin; S91.101D Unspecified open wound of right great toe without damage to nail, subsequent encounter | CPT/HCPCS: 29581; 99213; G0463 ==

== ENCOUNTER 2021-08-13 11:03 | Outpatient (CLI) | payer MEDICARE, MEDICAID | END 2021-08-13 11:04 | disposition home or self-care (01) | LOC: CSHWCC 11:03 | PROVIDERS: ATTEND Nurse Practitioner Family | DX: I87.311 Chronic venous hypertension (idiopathic) with ulcer of right lower extremity (principal); L97.312 Non-pressure chronic ulcer of right ankle with fat layer exposed; S91.101D Unspecified open wound of right great toe without damage to nail, subsequent encounter; R60.0 Localized edema | CPT/HCPCS: 29581; 97139; G0463; 99213 ==

== ENCOUNTER 2021-08-17 13:11 | Outpatient (CLI) | payer MEDICARE, MEDICAID | END 2021-08-17 13:12 | disposition home or self-care (01) | LOC: CSHWCC 13:11 | PROVIDERS: ATTEND Nurse Practitioner Family | DX: I87.313 Chronic venous hypertension (idiopathic) with ulcer of bilateral lower extremity (principal); S91.101D Unspecified open wound of right great toe without damage to nail, subsequent encounter; L97.312 Non-pressure chronic ulcer of right ankle with fat layer exposed; L97.321 Non-pressure chronic ulcer of left ankle limited to breakdown of skin; R60.0 Localized edema | CPT/HCPCS: 29581; 99213; G0463 ==

== ENCOUNTER 2021-08-20 10:39 | Outpatient (CLI) | payer MEDICARE, MEDICAID | END 2021-08-20 10:40 | disposition home or self-care (01) | LOC: CSHWCC 10:39 | PROVIDERS: ATTEND Nurse Practitioner Family | DX: S91.101D Unspecified open wound of right great toe without damage to nail, subsequent encounter (principal); I87.312 Chronic venous hypertension (idiopathic) with ulcer of left lower extremity; L97.321 Non-pressure chronic ulcer of left ankle limited to breakdown of skin; I87.311 Chronic venous hypertension (idiopathic) with ulcer of right lower extremity; L97.312 Non-pressure chronic ulcer of right ankle with fat layer exposed; R60.0 Localized edema ==

== ENCOUNTER 2021-08-24 14:14 | Outpatient (CLI) | payer MEDICARE, MEDICAID, OTHER | END 2021-08-24 14:15 | disposition home or self-care (01) | LOC: CSHWCC 14:14 | PROVIDERS: ATTEND Nurse Practitioner Family | DX: S91.101D Unspecified open wound of right great toe without damage to nail, subsequent encounter (principal); I87.312 Chronic venous hypertension (idiopathic) with ulcer of left lower extremity; L97.321 Non-pressure chronic ulcer of left ankle limited to breakdown of skin; R60.0 Localized edema ==

== ENCOUNTER 2021-08-27 13:08 | Outpatient (CLI) | payer MEDICARE, MEDICAID | END 2021-08-27 13:09 | disposition home or self-care (01) | LOC: CSHWCC 13:08 | PROVIDERS: ATTEND Nurse Practitioner Family | DX: S91.101D Unspecified open wound of right great toe without damage to nail, subsequent encounter (principal); R60.0 Localized edema | CPT/HCPCS: 29581; 97139; G0463; 99213 ==

== ENCOUNTER 2021-09-01 12:59 | Outpatient (CLI) | payer OTHER | END 2021-09-01 13:00 | disposition home or self-care (01) | LOC: CSHWCC 12:59 | PROVIDERS: ATTEND Nurse Practitioner Family | DX: S91.101D Unspecified open wound of right great toe without damage to nail, subsequent encounter (principal); I87.312 Chronic venous hypertension (idiopathic) with ulcer of left lower extremity; L97.321 Non-pressure chronic ulcer of left ankle limited to breakdown of skin; I87.311 Chronic venous hypertension (idiopathic) with ulcer of right lower extremity; R60.0 Localized edema ==

== ENCOUNTER 2021-09-04 10:11 | Outpatient (CLI) | payer OTHER | END 2021-09-04 10:12 | disposition home or self-care (01) | LOC: CSHWCC 10:11 | PROVIDERS: ATTEND Nurse Practitioner Family | DX: S91.101D Unspecified open wound of right great toe without damage to nail, subsequent encounter (principal); I87.312 Chronic venous hypertension (idiopathic) with ulcer of left lower extremity; L97.321 Non-pressure chronic ulcer of left ankle limited to breakdown of skin; R60.0 Localized edema ==

== ENCOUNTER 2021-09-07 10:41 | Outpatient (CLI) | payer OTHER | END 2021-09-07 10:42 | disposition home or self-care (01) | LOC: CSHWCC 10:41 | PROVIDERS: ATTEND Nurse Practitioner Family | DX: S91.101D Unspecified open wound of right great toe without damage to nail, subsequent encounter (principal); I87.312 Chronic venous hypertension (idiopathic) with ulcer of left lower extremity; L97.321 Non-pressure chronic ulcer of left ankle limited to breakdown of skin; R60.0 Localized edema ==

== ENCOUNTER 2021-09-14 07:55 | Outpatient (CLI) | payer MEDICARE, MEDICAID | END 2021-09-14 07:56 | disposition home or self-care (01) | LOC: CSHWCC 07:55 | PROVIDERS: ATTEND Nurse Practitioner Family | DX: I87.313 Chronic venous hypertension (idiopathic) with ulcer of bilateral lower extremity (principal); L97.321 Non-pressure chronic ulcer of left ankle limited to breakdown of skin; L97.312 Non-pressure chronic ulcer of right ankle with fat layer exposed; S91.101D Unspecified open wound of right great toe without damage to nail, subsequent encounter; R60.0 Localized edema | CPT/HCPCS: 29581; 97139; G0463; 99213 ==

== ENCOUNTER 2021-09-17 11:14 | Outpatient (CLI) | payer MEDICARE, MEDICAID | END 2021-09-17 11:15 | disposition home or self-care (01) | LOC: CSHWCC 11:14 | PROVIDERS: ATTEND Nurse Practitioner Family | DX: I87.313 Chronic venous hypertension (idiopathic) with ulcer of bilateral lower extremity (principal); L97.321 Non-pressure chronic ulcer of left ankle limited to breakdown of skin; L97.312 Non-pressure chronic ulcer of right ankle with fat layer exposed; S91.101D Unspecified open wound of right great toe without damage to nail, subsequent encounter; R60.0 Localized edema ==

== ENCOUNTER 2021-09-24 10:46 | Outpatient (CLI) | payer MEDICARE, MEDICAID | END 2021-09-24 10:47 | disposition home or self-care (01) | LOC: CSHWCC 10:46 | PROVIDERS: ATTEND Nurse Practitioner Family | DX: S91.101D Unspecified open wound of right great toe without damage to nail, subsequent encounter (principal); I87.312 Chronic venous hypertension (idiopathic) with ulcer of left lower extremity; L97.321 Non-pressure chronic ulcer of left ankle limited to breakdown of skin; I87.311 Chronic venous hypertension (idiopathic) with ulcer of right lower extremity; L97.312 Non-pressure chronic ulcer of right ankle with fat layer exposed; R60.0 Localized edema | CPT/HCPCS: 29581; 97139; G0463; 99213 ==

== ENCOUNTER 2021-09-28 15:16 | Outpatient (CLI) | payer MEDICARE, MEDICAID | END 2021-09-28 15:17 | disposition home or self-care (01) | LOC: CSHWCC 15:16 | PROVIDERS: ATTEND Nurse Practitioner Family | DX: I87.313 Chronic venous hypertension (idiopathic) with ulcer of bilateral lower extremity (principal); S91.101D Unspecified open wound of right great toe without damage to nail, subsequent encounter; L97.321 Non-pressure chronic ulcer of left ankle limited to breakdown of skin; L97.312 Non-pressure chronic ulcer of right ankle with fat layer exposed; R60.0 Localized edema | CPT/HCPCS: 29581 ==

== ENCOUNTER 2021-10-01 14:03 | Outpatient (CLI) | payer OTHER, MEDICAID | END 2021-10-01 14:04 | disposition home or self-care (01) | LOC: CSHWCC 14:03 | PROVIDERS: ATTEND Nurse Practitioner Family | DX: S91.101D Unspecified open wound of right great toe without damage to nail, subsequent encounter (principal); I87.312 Chronic venous hypertension (idiopathic) with ulcer of left lower extremity; L97.321 Non-pressure chronic ulcer of left ankle limited to breakdown of skin | CPT/HCPCS: 29581 ==

== ENCOUNTER 2021-10-05 15:16 | Outpatient (CLI) | payer OTHER, MEDICAID | END 2021-10-05 15:17 | disposition home or self-care (01) | LOC: CSHWCC 15:16 | PROVIDERS: ATTEND Nurse Practitioner Family | DX: I87.312 Chronic venous hypertension (idiopathic) with ulcer of left lower extremity (principal); L97.321 Non-pressure chronic ulcer of left ankle limited to breakdown of skin; S91.101D Unspecified open wound of right great toe without damage to nail, subsequent encounter | CPT/HCPCS: 29581; 97139; G0463; 99213 ==

== ENCOUNTER 2021-10-13 12:50 | Outpatient (CLI) | payer MEDICARE, OTHER | END 2021-10-13 12:51 | disposition home or self-care (01) | LOC: CSHWCC 12:50 | PROVIDERS: ATTEND Nurse Practitioner Family | DX: I87.312 Chronic venous hypertension (idiopathic) with ulcer of left lower extremity (principal); L97.321 Non-pressure chronic ulcer of left ankle limited to breakdown of skin; S91.101D Unspecified open wound of right great toe without damage to nail, subsequent encounter ==

== ENCOUNTER 2021-10-19 13:13 | Outpatient (CLI) | payer MEDICARE, OTHER | END 2021-10-19 13:14 | disposition home or self-care (01) | LOC: CSHWCC 13:13 | PROVIDERS: ATTEND Nurse Practitioner Family | DX: I87.312 Chronic venous hypertension (idiopathic) with ulcer of left lower extremity (principal); L97.321 Non-pressure chronic ulcer of left ankle limited to breakdown of skin; S91.101D Unspecified open wound of right great toe without damage to nail, subsequent encounter | CPT/HCPCS: 29581 ==

== ENCOUNTER 2021-10-26 14:05 | Outpatient (CLI) | payer MEDICARE, OTHER | END 2021-10-26 14:06 | disposition home or self-care (01) | LOC: CSHWCC 14:05 | PROVIDERS: ATTEND Family Medicine | DX: I87.313 Chronic venous hypertension (idiopathic) with ulcer of bilateral lower extremity (principal); L97.312 Non-pressure chronic ulcer of right ankle with fat layer exposed; L97.321 Non-pressure chronic ulcer of left ankle limited to breakdown of skin; S91.101D Unspecified open wound of right great toe without damage to nail, subsequent encounter; R60.0 Localized edema | CPT/HCPCS: 29581; 97139; 97597; G0463; 99213 ==

== ENCOUNTER 2021-10-29 13:21 | Outpatient (CLI) | payer MEDICARE, OTHER | END 2021-10-29 13:22 | disposition home or self-care (01) | LOC: CSHWCC 13:21 | PROVIDERS: ATTEND Preventive Medicine Undersea and Hyperbaric Medicine | DX: I87.313 Chronic venous hypertension (idiopathic) with ulcer of bilateral lower extremity (principal); L97.312 Non-pressure chronic ulcer of right ankle with fat layer exposed; L97.321 Non-pressure chronic ulcer of left ankle limited to breakdown of skin; S91.101D Unspecified open wound of right great toe without damage to nail, subsequent encounter; R60.0 Localized edema | CPT/HCPCS: 29581; 97139; G0463; 99213 ==

== ENCOUNTER 2021-11-06 10:16 | Outpatient (CLI) | payer MEDICARE, OTHER | END 2021-11-06 10:17 | disposition home or self-care (01) | LOC: CSHWCC 10:16 | PROVIDERS: ATTEND Preventive Medicine Undersea and Hyperbaric Medicine | DX: I87.313 Chronic venous hypertension (idiopathic) with ulcer of bilateral lower extremity (principal); S91.101D Unspecified open wound of right great toe without damage to nail, subsequent encounter; L97.321 Non-pressure chronic ulcer of left ankle limited to breakdown of skin; L97.312 Non-pressure chronic ulcer of right ankle with fat layer exposed; R60.0 Localized edema | CPT/HCPCS: 29581 ==

== ENCOUNTER 2021-11-09 08:58 | Outpatient (CLI) | payer MEDICARE, OTHER | END 2021-11-09 08:59 | disposition home or self-care (01) | LOC: CSHWCC 08:58 | PROVIDERS: ATTEND Nurse Practitioner Family | DX: I87.313 Chronic venous hypertension (idiopathic) with ulcer of bilateral lower extremity (principal); L97.321 Non-pressure chronic ulcer of left ankle limited to breakdown of skin; L97.312 Non-pressure chronic ulcer of right ankle with fat layer exposed | CPT/HCPCS: 29581 ==

== ENCOUNTER 2021-11-12 12:51 | Outpatient (CLI) | payer OTHER, MEDICAID, MEDICARE | END 2021-11-12 12:52 | disposition home or self-care (01) | LOC: CSHWCC 12:51 | PROVIDERS: ATTEND Preventive Medicine Undersea and Hyperbaric Medicine | DX: S91.101D Unspecified open wound of right great toe without damage to nail, subsequent encounter (principal); I87.313 Chronic venous hypertension (idiopathic) with ulcer of bilateral lower extremity; L97.312 Non-pressure chronic ulcer of right ankle with fat layer exposed; L97.321 Non-pressure chronic ulcer of left ankle limited to breakdown of skin; R60.0 Localized edema ==

== ENCOUNTER 2024-03-10 09:53 | Emergency (ER) | payer OTHER ==
[2024-03-10] MEDS ORDERED: Cefepime 2 GM VIAL ONE (10:04)
[2024-03-10] MEDS ORDERED: Ipratropium/Albuterol 3 ML NEB ONE (10:10)
[2024-03-10 10:37] LABS: #Basophils 0.04 10x3/uL (0.0-0.2); #Eosinophils 0.19 10x3/uL (0.0-0.5); #Monocytes 1.47 10x3/uL (0.0-1.1); #Neutrophils 15.52 10x3/uL (1.5-8.4); %Basophils 0.2 % (0.0-2.0); %Lymphocytes 5.4 % (18.0-47.0); %Monocytes 7.9 % (0.0-10.0); %Neutrophils 83.8 % (40.0-75.0); Hematocrit 37.6 % (38.8-50.0); Hemoglobin 11.2 g/dL (13.5-17.5); Mean Corpuscular HGB CONC 29.8 g/dL (32.0-36.0); Mean Corpuscular Hemoglobin 26.4 pg (27.0-33.0); Mean Corpuscular Volume 88.7 fL (81.2-95.1); Mean Platelet Volume 10.8 fL (7.4-10.4); Platelet Count 182 10x3/uL (150-450); RBC Distribution Width 14.7 % (11.5-14.5); Red Blood Cell (RBC) Count 4.24 10x6/uL (4.32-5.72); White Blood Cell (WBC) Count 18.54 10x3/uL (3.5-10.5)
[2024-03-10] MEDS ORDERED: VANCOMYCIN 2 GRAM/400 ML BAG 2 GM in Premix 1 BAG IVPB SCH (10:45)
[2024-03-10 10:49] LABS: INR-International Normal Ratio 1.2; PTT 35.9 sec (22.0-33.0)
[2024-03-10 10:53] LABS: ALT (SGPT) 17 U/L (8-55); AST (SGOT) 23 U/L (5-34); Albumin 2.5 g/dL (3.4-4.8); Alkaline Phosphatase 200 U/L (40-110); Anion Gap 12 mmol/L (10-20); BUN (Urea Nitrogen) 28 mg/dL (8.4-25.7); Bilirubin, Total 0.6 mg/dL (0.2-1.2); Calc. Creatinine Clearance 0 mL/min (70-130); Carbon Dioxide 22 mmol/L (23-31); Chloride 112 mmol/L (98-107); Estimated GFR 92; Globulin 3.4 g/dL (2.4-3.5); Glucose 102 mg/dL (83-110); Potassium 4.1 mmol/L (3.5-5.1); Protein, Total 5.9 g/dL (5.8-8.1); Sodium 142 mmol/L (136-145)
[2024-03-10 10:58] LABS: Troponin I 0.015 ng/mL (< 0.028)
[2024-03-10 11:49] LABS: Bilirubin Neg (Negative); Blood, Urine 25 (Negative); Clarity Clear (Clear); Glucose, Urine (Dipstick) Normal (Negative); Ketone, Urine Negative (Negative); Leukocyte Negative (Negative); Nitrite Negative (Negative); Protein, Urine (Dipstick) 30 mg/dl (Neg-Trace); Specific Gravity, Urine 1.015 (1.005-1.030); Urobilinogen Normal mg/dL (Less than 2)
[2024-03-10 12:03] LABS: Bacteria/HPF 3+ HPF (None Seen); CAUTI Indications for Culture Dysuria,urgency,freq; RBC/HPF 0-3 HPF (0-3); Squamous Epithelial 0-3 HPF (0-3); Urine Culture Reflex No No; WBC/HPF 0-3 HPF (0-3)
[2024-03-10] MEDS ORDERED: Iopamidol 300 61% 100 ML VIAL FS ONE (13:48)
[2024-03-10] MEDS ORDERED: Meropenem 1 GM VIAL ONE (15:10)
[2024-03-10] MEDS ORDERED: Morphine 4 MG/ML VIAL ONE (16:25)
== END 2024-03-10 18:04 | disposition short-term general hospital (02) ==
LOC: CSHERS 09:53
DX: J44.0 Chronic obstructive pulmonary disease with (acute) lower respiratory infection (principal); J18.9 Pneumonia, unspecified organism; J86.9 Pyothorax without fistula; D72.829 Elevated white blood cell count, unspecified; I10 Essential (primary) hypertension; E11.9 Type 2 diabetes mellitus without complications; Z79.82 Long term (current) use of aspirin; Z79.899 Other long term (current) drug therapy; Z87.891 Personal history of nicotine dependence
CPT/HCPCS: 70450; 71260; 81001; 83605; 83880; 84145; 84484; 85610; 85730; 87040 ×2; 87070; 87205; 87428; 93005; 96365; 96366; 96367; 96375; 99285; J0692; J2185; J2272; J3370; 36415; 80053; 84443; 85025; 87077; 87186; J2270; J7620; Q9967